=== PATIENT | male | born 1940 | race Caucasian/White ===

== ENCOUNTER 2017-06-13 09:00 | Emergency (ER) | payer OTHER, MEDICARE ==
[~2017-06-13] VITALS: Ht 188 cm; Wt 113.4 kg
[2017-06-13 09:04] VITALS: BP_SYST 113
--- NOTE | 2017-06-13 09:13 | NUR ---
Patient to ER bed 8 to gown for evaluation. Side rails up. Report given to Enrico QUIÑONES.
--- NOTE | 2017-06-13 09:20 | NUR ---
Dr. Mack at bedside for evaluation
--- NOTE | 2017-06-13 09:22 | NUR ---
Left knee pain +swelling noticed friday morning. Denies injury. States that he went to the gym on friday and it was fine. Tender to touch on kneecap. No deformity.
--- NOTE | 2017-06-13 09:23 | NUR ---
Pt refused ice pack at this time.
[2017-06-13] MEDS ORDERED: HYDROcodone/ACETAMIN 5-325 MG TAB (NORCO/ VICODIN) PO ONE (09:30)
--- NOTE | 2017-06-13 09:36 | NUR ---
Medicated per MD orders. Tolerated well. Awaiting xray
--- NOTE | 2017-06-13 09:59 | NUR ---
Xrays completed at bedside
--- NOTE | 2017-06-13 10:30 | NUR ---
No adverse reaction to medication given in ER
[2017-06-13 10:32] VITALS: BP_SYST 110
--- NOTE | 2017-06-13 10:32 | NUR ---
Patient given written and verbal discharge instructions and verbalizes understanding. ER MD discussed with patient the results and treatment provided. Patient in stable condition. ID arm band removed. Rx of colchicine, indomethacin, norco given. Patient educated on pain management and to follow up with PMD. Pain Scale 3/10. Opportunity for questions provided and answered.
== END 2017-06-13 10:32 | disposition home or self-care (01) ==
LOC: SED 09:00
DX: M10.062 Idiopathic gout, left knee (principal)
CPT/HCPCS: 73560-TC; 99284

== ENCOUNTER 2017-10-31 08:50 | Emergency (ER) | payer OTHER, MEDICARE ==
[~2017-10-31] VITALS: Ht 188 cm; Wt 108.9 kg
[2017-10-31 08:55] VITALS: BP_SYST 140
--- NOTE | 2017-10-31 09:00 | NUR ---
Ambulatory to bed 1
--- NOTE | 2017-10-31 09:18 | NUR ---
DR ROSE AT BEDSIDE FOR EVALUATION
--- NOTE | 2017-10-31 09:25 | NUR ---
XRAYS BEING DONE AT BEDSIDE.
[2017-10-31] MEDS ORDERED: ACETAMINOPHEN 500 MG TABLET PO ONE (09:30)
[2017-10-31 10:06] VITALS: BP_SYST 137
--- NOTE | 2017-10-31 10:06 | NUR ---
Patient given written and verbal discharge instructions and verbalizes understanding. ER MD discussed with patient the results and treatment provided. Patient in stable condition. ID arm band removed. Rx of MOTRIN given. Patient educated on pain management and to follow up with PMD. Pain Scale 0/10. Opportunity for questions provided and answered.
== END 2017-10-31 10:06 | disposition home or self-care (01) ==
LOC: SED 08:50
DX: S93.402A Sprain of unspecified ligament of left ankle, initial encounter (principal); M10.9 Gout, unspecified; W22.8XXA Striking against or struck by other objects, initial encounter; Y93.89 Activity, other specified; Y92.89 Other specified places as the place of occurrence of the external cause; Y99.8 Other external cause status
CPT/HCPCS: 99284

== ENCOUNTER 2017-12-11 08:27 | Outpatient (CLI) | payer OTHER, MEDICARE ==
[2017-12-11 09:16] LABS: BASOPHILS % (AUTO) 0.6 % (0.0-2.0); BILIRUBIN,URINE NEGATIVE (NEGATIVE); BLOOD, URINE NEGATIVE (NEGATIVE); CLARITY/URINE CLEAR (CLEAR); COLOR,URINE YELLOW (YELLOW); EOSINOPHILS # (AUTO) 0.1 K/uL (0.0-0.4); GLUCOSE,URINE NEGATIVE (NEGATIVE); HEMATOCRIT 42.4 % (36-54); KETONES,URINE NEGATIVE (NEGATIVE); LEUKOCYTE ESTERASE ,URINE NEGATIVE (NEGATIVE); LYMPHOCYTES # (AUTO) 1.8 K/uL (1.0-5.5); LYMPHOCYTES % (AUTO) 33.8 % (20.5-51.5); MEAN CORPUSCULAR HEMOGLOBIN 29 pg (27-31); MEAN CORPUSCULAR HGB CONC 33 % (32-36); MEAN CORPUSCULAR VOLUME 89 fL (79.0-98.0); MONOCYTES # (AUTO) 0.5 K/uL (0.0-1.0); MONOCYTES % (AUTO) 8.7 % (1.7-9.3); NEUTROPHILS % (AUTO) 55.9 % (40.0-70.0); NITRITE, URINE NEGATIVE (NEGATIVE); PH,URINE 5.5 (5.0-8.0); PLATELET COUNT (AUTO) 234 K/uL (130-430); PROTEIN URINE NEGATIVE (NEGATIVE); RED BLOOD CELL COUNT(AUTO) 4.76 MIL/uL (4.2-6.2); RED CELL DISTRIBUTION WIDTH 12.7 % (9.0-15.0); UROBILINOGEN,URINE 0.2 (0.2-1.0); WHITE BLOOD COUNT (AUTO) 5.4 K/uL (4.8-10.8)
[2017-12-11 09:45] LABS: ALANINE AMINOTRANSFERASE 25 U/L (12-78); ALBUMIN 3.8 g/dL (3.4-4.8); ANION GAP 7 (5-15); ASPARTATE AMINOTRANSFERASE 18 U/L (10-37); CALCIUM 9.6 mg/dL (8.4-11.0); CHLORIDE 106 mmol/L (98-107); CHOLESTEROL 146 mg/dL (<200); CREATININE 1.04 mg/dL (0.55-1.30); GLUCOSE 102 mg/dL (70-99); HDL CHOLESTEROL 35 mg/dL (>45); LDL CHOLESTEROL 94 mg/dL (<100); POTASSIUM 3.9 mmol/L (3.5-5.1); SODIUM SERUM 138 mmol/L (136-145); THYROID STIMULATING HORMONE 1.42 uIu/mL (0.34-4.82); TOTAL BILIRUBIN 0.8 mg/dL (0.0-1.0); TRIGLYCERIDES 149 mg/dL (30-150); UREA NITROGEN, BLOOD 14 mg/dL (8-21)
== END 2017-12-11 18:42 | disposition home or self-care (01) ==
LOC: SLB 08:27
DX: Z12.5 Encounter for screening for malignant neoplasm of prostate (principal); E78.00 Pure hypercholesterolemia, unspecified; E03.9 Hypothyroidism, unspecified; N39.0 Urinary tract infection, site not specified; R73.01 Impaired fasting glucose
CPT/HCPCS: 36415; 80053; 80061; 81003; 82272; 84153; 84443-TC; 85025

== ENCOUNTER 2018-12-29 09:30 | Outpatient (CLI) | payer OTHER, MEDICARE ==
[2018-12-29 10:20] LABS: BILIRUBIN,URINE NEGATIVE (NEGATIVE); BLOOD, URINE NEGATIVE (NEGATIVE); CLARITY/URINE SL HAZY (CLEAR); COLOR,URINE YELLOW (YELLOW); GLUCOSE,URINE NEGATIVE (NEGATIVE); KETONES,URINE NEGATIVE (NEGATIVE); LEUKOCYTE ESTERASE ,URINE NEGATIVE (NEGATIVE); NITRITE, URINE NEGATIVE (NEGATIVE); PH,URINE 5.5 (5.0-8.0); PROTEIN URINE NEGATIVE (NEGATIVE); UROBILINOGEN,URINE 0.2 (0.2-1.0)
[2018-12-29 10:34] LABS: BASOPHILS % (AUTO) 0.4 % (0.0-2.0); EOSINOPHILS # (AUTO) 0.1 K/uL (0.0-0.4); EOSINOPHILS % (AUTO) 1.6 % (0.0-4.0); HEMATOCRIT 43.8 % (36-54); HEMOGLOBIN 14.6 g/dL (14.0-18.0); LYMPHOCYTES # (AUTO) 1.9 K/uL (1.0-5.5); LYMPHOCYTES % (AUTO) 38.2 % (20.5-51.5); MEAN CORPUSCULAR HEMOGLOBIN 29 pg (27-31); MEAN CORPUSCULAR HGB CONC 33 % (32-36); MEAN CORPUSCULAR VOLUME 89 fL (79.0-98.0); MONOCYTES # (AUTO) 0.4 K/uL (0.0-1.0); MONOCYTES % (AUTO) 8.3 % (1.7-9.3); NEUTROPHILS # (AUTO) 2.6 K/uL (1.8-7.7); NEUTROPHILS % (AUTO) 51.5 % (40.0-70.0); PLATELET COUNT (AUTO) 190 K/uL (130-430); RED BLOOD CELL COUNT(AUTO) 4.95 MIL/uL (4.2-6.2); RED CELL DISTRIBUTION WIDTH 12.8 % (9.0-15.0)
[2018-12-29 11:00] LABS: ALANINE AMINOTRANSFERASE 26 U/L (12-78); ALBUMIN 3.6 g/dL (3.4-4.8); ANION GAP 3 (5-15); ASPARTATE AMINOTRANSFERASE 20 U/L (10-37); CHLORIDE 105 mmol/L (98-107); CHOLESTEROL 146 mg/dL (<200); CREATININE 1.11 mg/dL (0.55-1.30); GLUCOSE 93 mg/dL (70-99); HDL CHOLESTEROL 32 mg/dL (>45); LDL CHOLESTEROL 98 mg/dL (<100); POTASSIUM 4.1 mmol/L (3.5-5.1); SODIUM SERUM 137 mmol/L (136-145); THYROID STIMULATING HORMONE 1.29 uIu/mL (0.34-4.82); TOTAL BILIRUBIN 0.8 mg/dL (0.0-1.0); TRIGLYCERIDES 149 mg/dL (30-150); UREA NITROGEN, BLOOD 15 mg/dL (8-21)
[2018-12-30 08:06] LABS: PROSTATE SPECIFIC AG 3.4 ng/mL (0.0-4.0)
== END 2018-12-29 21:28 | disposition home or self-care (01) ==
LOC: SLB 09:30
DX: Z12.5 Encounter for screening for malignant neoplasm of prostate (principal); E78.00 Pure hypercholesterolemia, unspecified; E03.9 Hypothyroidism, unspecified; E55.9 Vitamin D deficiency, unspecified; R73.01 Impaired fasting glucose; N39.0 Urinary tract infection, site not specified
CPT/HCPCS: 36415; 80053; 80061; 81003; 82306; 84443; 85025; G0103

== ENCOUNTER 2019-03-17 09:07 | Outpatient (CLI) | payer OTHER, MEDICARE ==
[2019-03-17 10:21] LABS: BASOPHILS % (AUTO) 0.6 % (0.0-2.0); EOSINOPHILS # (AUTO) 0.1 K/uL (0.0-0.4); EOSINOPHILS % (AUTO) 0.8 % (0.0-4.0); HEMATOCRIT 43.4 % (36-54); HEMOGLOBIN 14.7 g/dL (14.0-18.0); LYMPHOCYTES # (AUTO) 1.9 K/uL (1.0-5.5); LYMPHOCYTES % (AUTO) 27.3 % (20.5-51.5); MEAN CORPUSCULAR HEMOGLOBIN 30 pg (27-31); MEAN CORPUSCULAR HGB CONC 34 % (32-36); MEAN CORPUSCULAR VOLUME 87 fL (79.0-98.0); MONOCYTES # (AUTO) 0.4 K/uL (0.0-1.0); MONOCYTES % (AUTO) 6.1 % (1.7-9.3); NEUTROPHILS # (AUTO) 4.4 K/uL (1.8-7.7); NEUTROPHILS % (AUTO) 65.2 % (40.0-70.0); PLATELET COUNT (AUTO) 224 K/uL (130-430); RED BLOOD CELL COUNT(AUTO) 4.97 MIL/uL (4.2-6.2); WHITE BLOOD COUNT (AUTO) 6.8 K/uL (4.8-10.8)
[2019-03-17 10:34] LABS: ANION GAP 8 (5-15); CALCIUM 9.6 mg/dL (8.4-11.0); CHLORIDE 104 mmol/L (98-107); CREATININE 1.21 mg/dL (0.55-1.30); GLUCOSE 129 mg/dL (70-99); POTASSIUM 3.9 mmol/L (3.5-5.1); SODIUM SERUM 139 mmol/L (136-145); UREA NITROGEN, BLOOD 18 mg/dL (8-21)
== END 2019-03-17 21:13 | disposition home or self-care (01) ==
LOC: SCT 09:07
PROVIDERS: ATTEND Otolaryngology
DX: Z01.818 Encounter for other preprocedural examination (principal); J33.9 Nasal polyp, unspecified; J34.2 Deviated nasal septum; M89.8X9 Other specified disorders of bone, unspecified site; M95.2 Other acquired deformity of head
CPT/HCPCS: 36415; 70486-TC; 71046-TC; 80048; 85025; 93005

== ENCOUNTER 2019-03-19 08:52 | Emergency (ER) | payer OTHER, MEDICARE ==
[~2019-03-19] VITALS: Ht 188 cm; Wt 106.1 kg
[2019-03-19 08:55] VITALS: BP_SYST 115
--- NOTE | 2019-03-19 09:06 | NUR ---
Patient to ER bed 1 to gown for evaluation. Side rails up. Report given to Ryan QUIÑONES.
--- NOTE | 2019-03-19 09:18 | NUR ---
Patient comes from home in personal vehicle accompanied by , patient is AOx4, verbal and ambulatory. Patient has complaint of pain to RT heel area. States that he fell about a "month ago and it still has not gone away" states that "by the end of the day foot is swollen and painful" Swelling to back of heel area noted, some redness noted, no heat to touch, ambulatory with pain. No other complaint or injury at this time.
--- NOTE | 2019-03-19 09:30 | NUR ---
DR SOLIZ at bedside for ER evaluation
[2019-03-19 11:33] LABS: BASOPHILS % (AUTO) 0.4 % (0.0-2.0); EOSINOPHILS # (AUTO) 0.1 K/uL (0.0-0.4); EOSINOPHILS % (AUTO) 0.9 % (0.0-4.0); HEMATOCRIT 41.4 % (36-54); HEMOGLOBIN 14.2 g/dL (14.0-18.0); LYMPHOCYTES # (AUTO) 2.2 K/uL (1.0-5.5); MEAN CORPUSCULAR HEMOGLOBIN 30 pg (27-31); MEAN CORPUSCULAR HGB CONC 34 % (32-36); MEAN CORPUSCULAR VOLUME 87 fL (79.0-98.0); MONOCYTES # (AUTO) 0.6 K/uL (0.0-1.0); MONOCYTES % (AUTO) 8.3 % (1.7-9.3); NEUTROPHILS % (AUTO) 58.4 % (40.0-70.0); PLATELET COUNT (AUTO) 212 K/uL (130-430); RED BLOOD CELL COUNT(AUTO) 4.78 MIL/uL (4.2-6.2); RED CELL DISTRIBUTION WIDTH 13.8 % (9.0-15.0); WHITE BLOOD COUNT (AUTO) 6.8 K/uL (4.8-10.8)
--- NOTE | 2019-03-19 11:40 | NUR ---
Pt resting at this time, no s/s of distress.
[2019-03-19 11:48] LABS: ANION GAP 4 (5-15); CALCIUM 9.5 mg/dL (8.4-11.0); CHLORIDE 104 mmol/L (98-107); CREATININE 1.19 mg/dL (0.55-1.30); GLUCOSE 91 mg/dL (70-99); POTASSIUM 4.7 mmol/L (3.5-5.1); SODIUM SERUM 138 mmol/L (136-145); UREA NITROGEN, BLOOD 18 mg/dL (8-21)
[2019-03-19 11:55] LABS: ALANINE AMINOTRANSFERASE 25 U/L (12-78); ALBUMIN 3.3 g/dL (3.4-4.8); ASPARTATE AMINOTRANSFERASE 18 U/L (10-37); TOTAL BILIRUBIN 0.8 mg/dL (0.0-1.0); URIC ACID 8.8 mg/dL (2.4-7.0)
--- NOTE | 2019-03-19 14:45 | NUR ---
Pt awaiting for results on stable condition.
--- NOTE | 2019-03-19 15:14 | NUR ---
Patient given written and verbal discharge instructions and verbalizes understanding. ER MD discussed with patient the results and treatment provided. Patient in stable condition. ID arm band removed. Rx of Ibuprofen, [place] given. Patient educated on pain management and to follow up with PMD. Pain Scale 3/10. Opportunity for questions provided and answered. Medication side effect fact sheet provided.
[2019-03-19 15:15] VITALS: BP_SYST 103
== END 2019-03-19 15:15 | disposition home or self-care (01) ==
LOC: SED 08:52
DX: S86.011A Strain of right Achilles tendon, initial encounter (principal); W14.XXXA Fall from tree, initial encounter; Y93.89 Activity, other specified; Y92.89 Other specified places as the place of occurrence of the external cause; Y99.8 Other external cause status
CPT/HCPCS: 36415; 73700-TC; 73721; 80053; 84550-TC; 85025; 93971; 99284

== ENCOUNTER 2019-04-07 11:41 | Outpatient (CLI) | payer OTHER, MEDICARE | END 2019-04-07 20:18 | disposition home or self-care (01) | LOC: SRD 11:41 | PROVIDERS: ATTEND Orthopaedic Surgery | DX: M79.661 Pain in right lower leg (principal); R60.0 Localized edema | CPT/HCPCS: 93971 ==

== ENCOUNTER 2019-04-09 05:50 | Day surgery (SDC) | payer OTHER, MEDICARE ==
[~2019-04-09] VITALS: Ht 188 cm; Wt 106.6 kg
[2019-04-09] MEDS ORDERED: FAMOTIDINE PF 20 MG/2 ML VIAL ONE ×2 (08:37→10:28)
[2019-04-09] MEDS ORDERED: SEVOFLURANE 15 MIN GAS INH ONE (10:28)
[2019-04-09] MEDS ORDERED: LIDOCAINE/EPI 1% 1:100000 20 ML VIAL INJ ONE (10:28)
[2019-04-09] MEDS ORDERED: EPINEPHrine 1 MG/ML AMP ONE (10:28)
[2019-04-09] MEDS ORDERED: WATER FOR IRRIGATION,STERILE 1,000 ML IRRIG.SOLN IR ONE (10:28)
[2019-04-09] MEDS ORDERED: METOCLOPRAMIDE HCL 10 MG/2 ML VIAL ONE (10:28)
[2019-04-09] MEDS ORDERED: DEXAMETHASONE SOD PHOSPHATE 4 MG/ML VIAL ONE (10:28)
[2019-04-09] MEDS ORDERED: PROPOFOL 200MG/ 20ML VIAL (DIPRIVAN) IV ONE (10:28)
[2019-04-09] MEDS ORDERED: ROCURONIUM BROMIDE 10 MG/ML (ZEMURON) ONE (10:28)
[2019-04-09] MEDS ORDERED: fentaNYL CITRATE 250 MCG/5 ML AMP ONE (10:28)
[2019-04-09] MEDS ORDERED: fentaNYL CITRATE/PF 100 MCG/2 ML AMP ONE (10:28)
[2019-04-09] MEDS ORDERED: KETOROLAC TROMETHAMINE 30 MG VIAL ONE (10:28)
[2019-04-09] MEDS ORDERED: MUPIROCIN 2% TOPICAL OINTMENT 22 GM ONE (10:28)
[2019-04-09] MEDS ORDERED: LR 1,000 ML IV.SOLN IV ONE (10:28)
[2019-04-09] MEDS ORDERED: ONDANSETRON HCL 4 MG/2 ML VIAL ONE (10:28)
[2019-04-09] MEDS ORDERED: MIDAZOLAM HCL 5 MG/ML VIAL (VERSED) IV ONE (10:28)
[2019-04-09] MEDS ORDERED: OXYMETAZOLINE HCL 0.05% NASAL SPRAY NS ONE (10:28)
[2019-04-09] MEDS ORDERED: LR 1,000 ML IV SCH (10:31)
[2019-04-09] MEDS ORDERED: HYDROmorphone 2 MG/ML VIAL IVP PRN ×2 (10:45)
[2019-04-09] MEDS ORDERED: MEPERIDINE HCL/PF 25 MG/ML DISP.SYRIN IVP PRN (10:45)
[2019-04-09] MEDS ORDERED: HYDROmorphone 1 MG INJ. 1 MG/ML AMPUL IVP PRN (10:45)
[2019-04-09] MEDS ORDERED: HYDROmorphone 1 MG INJ. 1 MG/ML AMPUL ONE (11:23)
[2019-04-09 15:12] VITALS: BP_SYST 142
[2019-04-10] MEDS ORDERED: TAMS0.4C96 PO (02:08)
[2019-04-10] MEDS ORDERED: HYT1 PO ×2 (02:13→02:14)
== END 2019-04-09 14:45 | disposition home or self-care (01) ==
LOC: SMU 05:50 → SDS 05:50
PROVIDERS: ATTEND Otolaryngology
DX: J34.2 Deviated nasal septum (principal); J34.89 Other specified disorders of nose and nasal sinuses; I10 Essential (primary) hypertension; N40.0 Benign prostatic hyperplasia without lower urinary tract symptoms; E66.01 Morbid (severe) obesity due to excess calories
CPT/HCPCS: 30140; 30520; 31267; 31298; 87070 ×2; 87075; 87101; 88305; 88311; C1726; J0171; J1100; J1170; J1885; J2250; J2405; J2704; J2765; J3010 ×2; J3490; J7120

== ENCOUNTER 2019-04-10 00:33 | Inpatient (IN) | payer OTHER, MEDICARE ==
[~2019-04-10] VITALS: Ht 188 cm; Wt 106.1 kg
[2019-04-10 00:33] VITALS: BP_SYST 155
--- NOTE | 2019-04-10 00:33 | NUR ---
Patient to ER bed 2 to gown for evaluation. Side rails up.
--- NOTE | 2019-04-10 00:40 | NUR ---
ER at bedside examining patient.
--- NOTE | 2019-04-10 00:45 | NUR ---
Pt came to the ED post 12 hour status post nasal polyp removal performed by Dr. Shine for acute lower extremity weakness which started a few hours prior to arrival. Reports procedure went well. Reports he had a mild discomfort in his ABD after taking 1/2 dose of Cipro. He sat down and watched TV for a few hours while sitting up for hours. Around around 2300 he reported feeling bilateral leg weakness. states, "He said it felt like rubber." Currently, pt is complaining of AMR 8/10 when he stays still but when he turns his head it is 10/10. No other complaints/injuries noted. Will cont. to monitor.
--- NOTE | 2019-04-10 00:45 | NUR ---
Note undone in EDM - 04/10/19 at 0250 by [email or web address] Pt came to the ED post 12 hour status post nasal polyp removal performed by Dr. Shine for acute lower extremity weaknbess which started a few hours prior to arrival. Reports procedure went well. Reports he had a mild discomfort in his ABD after taking 1/2 dose of Cipro. He sat down and watched TV for a few hours while sitting up for hours. Around around 2300 he reported feeling bilateral leg weakness. states, "He said it felt like rubber." Currently, pt is complaining of MAR 8/10 when he stays still but when he turns his head it is 10/10. No other complaints/injuries noted. Will cont. to monitor.
[2019-04-10] MEDS ORDERED: NS 500 ML IV ONE (01:00)
[2019-04-10] MEDS ORDERED: MORPHINE 4 MG/ML INJ. SYRINGE IVP ONE (01:00)
[2019-04-10 01:32] LABS: BASOPHILS % (AUTO) 0.1 % (0.0-2.0); HEMATOCRIT 35.6 % (36-54); HEMOGLOBIN 12.2 g/dL (14.0-18.0); LYMPHOCYTES # (AUTO) 0.5 K/uL (1.0-5.5); LYMPHOCYTES % (AUTO) 4.3 % (20.5-51.5); MEAN CORPUSCULAR HEMOGLOBIN 30 pg (27-31); MEAN CORPUSCULAR HGB CONC 34 % (32-36); MEAN CORPUSCULAR VOLUME 87 fL (79.0-98.0); MONOCYTES # (AUTO) 0.3 K/uL (0.0-1.0); MONOCYTES % (AUTO) 3.2 % (1.7-9.3); NEUTROPHILS # (AUTO) 10.2 K/uL (1.8-7.7); NEUTROPHILS % (AUTO) 92.4 % (40.0-70.0); PLATELET COUNT (AUTO) 203 K/uL (130-430)
[2019-04-10 01:41] LABS: ANION GAP 11 (5-15); CALCIUM 9.1 mg/dL (8.4-11.0); CHLORIDE 102 mmol/L (98-107); CREATININE 1.39 mg/dL (0.55-1.30); GLUCOSE 212 mg/dL (70-99); POTASSIUM 4.1 mmol/L (3.5-5.1); SODIUM SERUM 139 mmol/L (136-145); UREA NITROGEN, BLOOD 26 mg/dL (8-21)
[2019-04-10 01:45] LABS: INR 1.1 (0.80-1.20); PROTHROMBIN TIME 10.8 SECS (9.5-12.5)
[2019-04-10] MEDS ORDERED: fentaNYL CITRATE/PF 100 MCG/2 ML AMP IVP ONE ×2 (01:45→05:30)
--- NOTE | 2019-04-10 01:45 | NUR ---
Reports pt cannot lie down for CAT scan. ER MD Dr. Mason will order more pain medication.
[2019-04-10 01:47] LABS: ALANINE AMINOTRANSFERASE 24 U/L (12-78); ALBUMIN 3.3 g/dL (3.4-4.8); ASPARTATE AMINOTRANSFERASE 16 U/L (10-37); TOTAL BILIRUBIN 0.6 mg/dL (0.0-1.0)
--- NOTE | 2019-04-10 01:55 | NUR ---
Administered Fentanyl IVP per MD order in CAT scan room. Pt on cardiac/O2 monitor. RN at bedside monitoring pt/.
[2019-04-10] MEDS ORDERED: ONDANSETRON HCL 4 MG/2 ML VIAL IVP ONE ×2 (02:00→05:30)
--- NOTE | 2019-04-10 02:00 | NUR ---
Pt had one episode of projectile emesis. ER MD at bedside. WIll cont. to monitor.
[2019-04-10] MEDS ORDERED: TAMS0.4C96 PO (02:08)
[2019-04-10] MEDS ORDERED: HYT1 PO ×2 (02:13→02:14)
[2019-04-10] MEDS ORDERED: NACL 0.9% IV ONE (02:15)
[2019-04-10] MEDS ORDERED: MORPHINE 2 MG/ML INJ. SYRINGE IVP PRN ×3 (02:15→06:30)
[2019-04-10] MEDS ORDERED: NACL 0.9% 1,000 ML IV SCH (02:15)
[2019-04-10] MEDS ORDERED: PIPERACILLIN/TAZO 3.375/DEX-IS 50 ML IV ONE (02:30)
[2019-04-10] MEDS ORDERED: LEVOFLOXACIN 500 MG/D5W 100 ML IV SCH (02:30)
[2019-04-10] MEDS ORDERED: PIPERACILLIN/TAZOBACTAM 3.375 GM/VIAL (ZOSYN) IV ONE (02:44)
--- NOTE | 2019-04-10 02:47 | NUR ---
Unable to do MRSA screen due to nasal polyp sx. ER made aware.
--- NOTE | 2019-04-10 03:00 | NUR ---
ER MD Dr. Mason on the phone with [facility] for possible transfer.
--- NOTE | 2019-04-10 04:30 | NUR ---
recieved call from [facility] Ana Delcid. Pt has been assigned room 262-B. Requested report to be called to phone # [phone].
--- NOTE | 2019-04-10 05:00 | NUR ---
Patient to be transferred to [facility]. Is being transferred due to higher level of care. Receiving facility has accepting physician and available space. ER physician has signed transfer form. Patient or responsible constitution party has agreed to transfer and signed form. Patient belongings inventoried and will be sent with patient. Copy of nursing notes, lab reports, EKG, Physicians Orders and X-rays to be sent with patient. Report called to ISHMAEL Henry at receiving facility. Receiving physician is Dr. Kilgore[facility] been [facility] for transfer. ETA is now.
[2019-04-10] MEDS ORDERED: KETOROLAC TROMETHAMINE 30 MG VIAL IVP ONE (05:15)
[2019-04-10] MEDS ORDERED: KETOROLAC TROMETHAMINE 30 MG VIAL ONE (05:25)
--- NOTE | 2019-04-10 05:27 | NUR ---
Note remigioone in EDM - 04/10/19 at 0543 by MITCHELLEDCA PT reports Toradol IVP was not effective. PONCHO Mason at bedside. WIll order another medication.
--- NOTE | 2019-04-10 05:27 | NUR ---
PT reports Toradol IVP was not effective. ER MD Dr. Mason at bedside. WIll order another medication
--- NOTE | 2019-04-10 05:35 | NUR ---
PT medicated with zofran and fentanyl per md order. Monitoring on cardiac and O2 monitor. VSS.
--- NOTE | 2019-04-10 05:46 | NUR ---
Monitored pt after administering fentanyl. ER MD gave okay for pt to be transferred.
[2019-04-10 06:00] VITALS: BP_SYST 153
--- NOTE | 2019-04-10 06:00 | NUR ---
Pt transferred via gurney. IV patent and saline locked. No signs of acute distress.
[2019-04-10] MEDS ORDERED: DOCUSATE SODIUM 100 MG CAPSULE PO PRN (06:30)
[2019-04-10] MEDS ORDERED: ZOLPIDEM TARTRATE 5 MG TABLET PO PRN (06:30)
[2019-04-10] MEDS ORDERED: LORazepam 2 MG/ML VIAL IVP PRN (06:30)
[2019-04-10] MEDS ORDERED: MUPIROCIN 2% TOPICAL OINTMENT 22 GM NS PRN (06:30)
[2019-04-10] MEDS ORDERED: POTASSIUM CHLORIDE 20 MEQ TAB.PRT.SR PO PRN (06:30)
[2019-04-10] MEDS ORDERED: ONDANSETRON HCL 4 MG/2 ML VIAL IVP PRN (06:30)
[2019-04-10] MEDS ORDERED: MAGNESIUM SULFATE 50 ML IV PRN (06:30)
[2019-04-10] MEDS ORDERED: ACETAMINOPHEN 325 MG TABLET PO PRN (06:30)
--- NOTE | 2019-04-10 07:20 | NUR ---
CONSULTATION PAGED/CALLED Reason for Consultation: [] NEUROPATHY Person Who was Notified: [] CITLALI Consulting Physician: [] Nayeli Schuler [employer] Bolter Specialty: [] NEUROLOGY Ordering Physician: [] DR Susannah DOMINGUEZ
[2019-04-10] MEDS ORDERED: TAMSULOSIN HCL 0.4 MG CAP PO SCH (09:00)
[2019-04-10] MEDS ORDERED: TERAZOSIN HCL 1 MG CAPSULE (HYTRIN) PO SCH (09:00)
== END 2019-04-10 06:00 | disposition short-term general hospital (02) | DRG 74 ==
LOC: SED 00:33 → STU 02:15
PROVIDERS: ADMIT General Practice; ATTEND General Practice
DX: G62.9 Polyneuropathy, unspecified (principal); N40.0 Benign prostatic hyperplasia without lower urinary tract symptoms; M10.9 Gout, unspecified; G93.89 Other specified disorders of brain; R51 Headache; Z79.899 Other long term (current) drug therapy
CPT/HCPCS: 36415; 70450-TC; 71045; 80053; 83036; 83605; 83880; 84484; 85025; 85610-TC; 85730-TC; 87040-TC; 93005; 96365; 96367; 96375; 96376; 99285; G0378; J1885; J1956; J2270; J2405; J2543; J3010

== ENCOUNTER 2019-05-31 12:41 | Emergency (ER) | payer OTHER, MEDICARE ==
[~2019-05-31] VITALS: Ht 188 cm; Wt 98.4 kg
[~2019-05-31 12:41] MED LIST: HYT1 PO; TAMS0.4C96 PO
--- NOTE | 2019-05-31 12:46 | NUR ---
Placed in room 04 . Placed on senior office support assistant sosa, blood pressure machine and pulse oximeter. To gown for exam. Side rails up.
[2019-05-31 12:47] VITALS: BP_SYST 116
--- NOTE | 2019-05-31 12:50 | NUR ---
Pt brought by family member , A&Ox4, pt presents to ER with one episode of R side weakness this morning at 1000 am , pt states he had a sinus surgery in the last month and he was admitted to hospital for air in the brain, pt is afebrile, skin pink and warm, cap refill <3 , pt is ambulatory, pt denies weakness at this time, no facial drop, intact ROM, intact speech, denies blurred vision, will cont to monitor.
--- NOTE | 2019-05-31 12:54 | NUR ---
Dr Mack at bedside examining patient
--- NOTE | 2019-05-31 13:15 | NUR ---
Pt off the unit for CT
--- NOTE | 2019-05-31 13:35 | NUR ---
Pt returned from CT on stable condition.
[2019-05-31 13:58] LABS: BASOPHILS % (AUTO) 0.2 % (0.0-2.0); EOSINOPHILS % (AUTO) 0.1 % (0.0-4.0); HEMATOCRIT 33.9 % (36-54); HEMOGLOBIN 11.4 g/dL (14.0-18.0); LYMPHOCYTES # (AUTO) 1.6 K/uL (1.0-5.5); LYMPHOCYTES % (AUTO) 15.5 % (20.5-51.5); MEAN CORPUSCULAR HEMOGLOBIN 29 pg (27-31); MEAN CORPUSCULAR HGB CONC 34 % (32-36); MEAN CORPUSCULAR VOLUME 88 fL (79.0-98.0); MONOCYTES # (AUTO) 0.8 K/uL (0.0-1.0); MONOCYTES % (AUTO) 7.7 % (1.7-9.3); NEUTROPHILS # (AUTO) 8.1 K/uL (1.8-7.7); NEUTROPHILS % (AUTO) 76.5 % (40.0-70.0); PLATELET COUNT (AUTO) 178 K/uL (130-430); RED BLOOD CELL COUNT(AUTO) 3.87 MIL/uL (4.2-6.2); RED CELL DISTRIBUTION WIDTH 15.2 % (9.0-15.0); WHITE BLOOD COUNT (AUTO) 10.5 K/uL (4.8-10.8)
--- NOTE | 2019-05-31 14:10 | NUR ---
Dr Mack at bedside explaining results to patient
--- NOTE | 2019-05-31 14:10 | NUR ---
Pt A&Ox4, intact ROM , no N./V, no blurred vision noted, PERRLA.
[2019-05-31 14:13] LABS: ANION GAP 9 (5-15); CHLORIDE 105 mmol/L (98-107); CREATININE 1.35 mg/dL (0.55-1.30); GLUCOSE 187 mg/dL (70-99); POTASSIUM 3.5 mmol/L (3.5-5.1); SODIUM SERUM 138 mmol/L (136-145); UREA NITROGEN, BLOOD 20 mg/dL (8-21)
[2019-05-31 14:17] LABS: BILIRUBIN,URINE NEGATIVE (NEGATIVE); BLOOD, URINE 1+ (NEGATIVE); CLARITY/URINE CLEAR (CLEAR); COLOR,URINE YELLOW (YELLOW); GLUCOSE,URINE NEGATIVE (NEGATIVE); KETONES,URINE NEGATIVE (NEGATIVE); LEUKOCYTE ESTERASE ,URINE 2+ (NEGATIVE); NITRITE, URINE POSITIVE (NEGATIVE); PH,URINE 5.5 (5.0-8.0); PROTEIN URINE NEGATIVE (NEGATIVE); UROBILINOGEN,URINE 0.2 (0.2-1.0)
[2019-05-31 14:17] LABS: ALANINE AMINOTRANSFERASE 19 U/L (12-78); ALBUMIN 3.1 g/dL (3.4-4.8); ASPARTATE AMINOTRANSFERASE 10 U/L (10-37)
[2019-05-31 14:20] LABS: INR 1.1 (0.80-1.20); PROTHROMBIN TIME 11.3 SECS (9.5-12.5)
[2019-05-31] MEDS ORDERED: cefTRIAXone 1 GM IVPB PREMIX 50 ML IV ONE (14:30)
[2019-05-31 14:39] LABS: BACTERIA,URINE MODERATE /HPF (None Seen); WBC,URINE >100 /HPF (0-3)
--- NOTE | 2019-05-31 15:30 | NUR ---
Pt resting no c/o pain, dizziness,nausea or vomiting.
--- NOTE | 2019-05-31 16:50 | NUR ---
Patient to be transferred to [place]. Is being transferred due to higher level of care. Receiving facility has accepting physician and available space. ER physician has signed transfer form. Patient or responsible republican has agreed to transfer and signed form. Patient belongings inventoried and will be sent with patient. Copy of nursing notes, lab reports, EKG, Physicians Orders and X-rays to be sent with patient. Report called to Lorenza QUIÑONES at receiving facility. Receiving physician is . [facility] ambulance service has been called for transfer. ETA is 1700.
[2019-05-31 17:20] VITALS: BP_SYST 117
--- NOTE | 2019-05-31 17:20 | NUR ---
pt transported to [facility] via gurney escorted by [facility] transport.
== END 2019-05-31 17:20 | disposition short-term general hospital (02) ==
LOC: SED 12:41
DX: I62.00 Nontraumatic subdural hemorrhage, unspecified (principal); Z79.899 Other long term (current) drug therapy
CPT/HCPCS: 36415; 70450; 71045; 80053; 81000; 83605; 84484; 85025; 85610; 85730; 87040; 87086; 87186; 93005; 96365; 99291; J0696

== ENCOUNTER 2019-06-17 07:52 | Inpatient (IN) | payer OTHER, MEDICARE ==
[~2019-06-17] VITALS: Ht 188 cm; Wt 98.0 kg
--- NOTE | 2019-06-17 08:03 | NUR ---
Patient to ER bed 2 to gown for evaluation. Side rails up. Report given to Irina QUIÑONES.
[2019-06-17 08:04] VITALS: BP_SYST 119
--- NOTE | 2019-06-17 08:04 | NUR ---
Patient presented to ER with c/o being Altered, confused. Patient arrived to ER with in wheelchair. Patient A&Ox4, skin pink, appropriate, respirations equal. Patient reports "not feeling like himself". states at 0700 pt stated he "doesnt know what happened" report pt was diaphoretic, walking with a shuffling gaite, and patient seemed confudes. states patient had nasal surgery 04/17/19, then was seen in ER 05/31/19 with subdural bleed.
--- NOTE | 2019-06-17 08:05 | NUR ---
ER Dr. Suarez at bedside examining patient.
--- NOTE | 2019-06-17 08:40 | NUR ---
Pt to ER bed [address] via wheelchair with radiology staff
[2019-06-17] MEDS ORDERED: DEXAMETHASONE SOD PHOSPHATE 4 MG/ML VIAL IVP ONE (09:15)
--- NOTE | 2019-06-17 09:30 | NUR ---
PATIENT PROVIDED SMALL URINE SPECIMEN IN URINAL, PATIENT STATES HE IS UNABLE TO EMPTY BLADDER.
[2019-06-17 09:37] LABS: BILIRUBIN,URINE NEGATIVE (NEGATIVE); CLARITY/URINE SL HAZY (CLEAR); COLOR,URINE YELLOW (YELLOW); GLUCOSE,URINE NEGATIVE (NEGATIVE); KETONES,URINE NEGATIVE (NEGATIVE); LEUKOCYTE ESTERASE ,URINE 2+ (NEGATIVE); NITRITE, URINE POSITIVE (NEGATIVE); PH,URINE 5.5 (5.0-8.0); PROTEIN URINE NEGATIVE (NEGATIVE); UROBILINOGEN,URINE 0.2 (0.2-1.0)
[2019-06-17 09:38] LABS: BLOOD, URINE TRACE (NEGATIVE)
[2019-06-17 09:49] LABS: BACTERIA,URINE MODERATE /HPF (None Seen); MUCUS,URINE 1+ /LPF (None Seen)
[2019-06-17] MEDS ORDERED: levETIRAcetam 500 MG IV PREMIX 100 ML IV ONE (10:00)
--- NOTE | 2019-06-17 10:00 | NUR ---
# 14 FR In and Out catheter with use of sterile technique. Immediate return of 800ml urine noted. Pt tolerated procedure WELL. Patient unable to toilet self.
[2019-06-17 10:06] LABS: HEMATOCRIT 40.7 % (36-54); HEMOGLOBIN 13.8 g/dL (14.0-18.0); MEAN CORPUSCULAR HEMOGLOBIN 29 pg (27-31); MEAN CORPUSCULAR HGB CONC 34 % (32-36); MEAN CORPUSCULAR VOLUME 86 fL (79.0-98.0); PLATELET COUNT (AUTO) 237 K/uL (130-430); RED BLOOD CELL COUNT(AUTO) 4.72 MIL/uL (4.2-6.2); RED CELL DISTRIBUTION WIDTH 15.3 % (9.0-15.0); WHITE BLOOD COUNT (AUTO) 20.9 K/uL (4.8-10.8)
[2019-06-17 10:08] LABS: ANION GAP 7 (5-15); CALCIUM 9.3 mg/dL (8.4-11.0); CHLORIDE 101 mmol/L (98-107); CREATININE 1.25 mg/dL (0.55-1.30); GLUCOSE 103 mg/dL (70-99); POTASSIUM 3.5 mmol/L (3.5-5.1); SODIUM SERUM 134 mmol/L (136-145); UREA NITROGEN, BLOOD 24 mg/dL (8-21)
[2019-06-17 10:13] LABS: ALANINE AMINOTRANSFERASE 19 U/L (12-78); ALBUMIN 3.4 g/dL (3.4-4.8); ASPARTATE AMINOTRANSFERASE 11 U/L (10-37)
[2019-06-17] MEDS ORDERED: FINA5TAB3 PO (10:44)
[2019-06-17] MEDS ORDERED: DEC1 PO (10:44)
[2019-06-17] MEDS ORDERED: TAMS-11 PO (10:45)
[2019-06-17] MEDS ORDERED: FAMO20TA8 PO (10:45)
[2019-06-17] MEDS ORDERED: HYT1 GT (10:45)
--- NOTE | 2019-06-17 10:47 | NUR ---
Medication reconciliation completed with information provided by Liz hirsch. Any prior medication reconciliation on file was reviewed and corrected.
--- NOTE | 2019-06-17 10:55 | NUR ---
Patient will be admitted to care of Dr. Murillo. Admitted to Tele unit. Will go to room 124A . Belongings list completed. Summary report printed. Report given at bedside Shannan QUIÑONES. Transfer to TELE 124a via ACLS protocol. Irina QUIÑONES & Lauri QUIÑONES. IV present no signs or symptoms of infiltration.
--- NOTE | 2019-06-17 10:56 | NUR ---
Admission Note Received patient from ER with diagnosis of autonomic dysfuncton. Initial Plan of Care discussed. Oriented to room, call light, pain management and safety.
[2019-06-17 11:06] VITALS: BP_SYST 127
[2019-06-17 11:10] VITALS: BP_SYST 127
[2019-06-17 11:14] LABS: BAND % (MANUAL) 5 % (0-6); BASOPHILS % (MANUAL) 0 % (0-2); EOSINOPHILS % (MANUAL) 0 % (0-7); LYMPHOCYTES % (MANUAL) 4 % (20-46); MONOCYTES % (MANUAL) 12 % (0-11)
--- NOTE | 2019-06-17 11:20 | NUR ---
RN INITIAL ROUNDS: PATIENT JUST CAME FROM ER . VITAL SIGNS ALREADY TAKEN BY ADMIT NURSE. AFEBRILE AND STABLE. BED LOCKED AT LOWEST POSITION. CALL LIGHT WITH IN REACH. CONTINUE TO MONITOR.
[2019-06-17] MEDS: NACL 0.9% 1,000 ML IV SCH ×2 (11:44→23:46)
[2019-06-17] MEDS: cefTRIAXone 1 GM in D5W 50 ML IV SCH (11:45)
--- NOTE | 2019-06-17 12:56 | NUR ---
RN ROUNDS: PATIENT FILLING UP MRI CHECK LIST. NOT IN ANY DISTRESS. CALL LIGHT WITH IN REACH. BED LOCKED AT LOWEST POSITION.
--- NOTE | 2019-06-17 14:25 | NUR ---
rn rounds: resting. no distress.
[2019-06-17] MEDS ORDERED: GADOPENTETATE DIMEGLUMINE 15 ML VIAL IV ONE (14:54)
--- NOTE | 2019-06-17 16:30 | NUR ---
mri: to mri per wheelchair. stable. Addendum: 06/17/19 at 1814 by Marcela Romero RN corrected above time: correct time at 1500.
[2019-06-17 17:00] VITALS: BP_SYST 108
--- NOTE | 2019-06-17 18:14 | NUR ---
End of Shift: Patient refused his dinner tray due to will bring his dinner food . bought food and served it to her .No acute distress. Condition guarded.
--- NOTE | 2019-06-17 18:57 | NUR ---
Bladder Scan: Bladder scan ,obtained 103ml urine.
[2019-06-17] MEDS ORDERED: BISACODYL 5 MG TABLET.DR (DULCOLAX) PO PRN (19:00)
--- NOTE | 2019-06-17 19:28 | NUR ---
Closing Notes: Endorsed to night nurse Lucy,patient in stable condition. Call light with in reach. Bed locked at lowest position.
--- NOTE | 2019-06-17 19:30 | NUR ---
OPENING NOTE Late entry d/t patient care. Received patient awake, AOx4 resting in bed, no sign of distress noted. Non-labored breathing on room air. IVF infusing via IV on RAC. Bed is locked to lowest position, side rails up 2x and instructed on use of call light.
[2019-06-17 20:00] VITALS: BP_SYST 116
[2019-06-17] MEDS ORDERED: DECADRON 4 MG TABLET PO SCH (21:00)
[2019-06-17] MEDS: DOCUSATE SODIUM 100 MG CAPSULE PO SCH (21:28)
[2019-06-17] MEDS: levETIRAcetam 500 MG TABLET PO SCH (21:28)
[2019-06-17] MEDS: DEXAMETHASONE 1 MG TABLET (DECADRON) PO SCH (21:28)
[2019-06-17] MEDS: FAMOTIDINE 20 MG TABLET PO SCH (21:28)
--- NOTE | 2019-06-17 21:45 | NUR ---
Medications Due medications given. Patient educated on side effects and he verbalized understanding. Presently wants to rest and requesting lights off. Bed alarm on and call light w/in reach.
--- NOTE | 2019-06-17 23:30 | NUR ---
Bladder Scan / Straight Cath Bladder scan performed and obtained reading of 260ml. Straight catheterization done with use of sterile technique and obtained 200 ml of clear yellow urine.
--- NOTE | 2019-06-17 23:51 | NUR ---
IVF Replaced empty IV fluid bag with new IV bag of NS. Infusing at 80 ml/hr as ordered. Patient is resting in side posture and lights are off. Safety precautions maintained (bed alarm on).
[2019-06-18 00:15] VITALS: BP_SYST 114
--- NOTE | 2019-06-18 00:20 | NUR ---
Jasvir Heart Rate Patient's heart rate dropped to 43 on telemonitor. I went to assess patient and B/P , HR 48. Patient is asymptomatic and denies feeling dizzy. He adds that he tends to get low heart rate, due to athletic history. Will monitor. Addendum: 06/18/19 at 0023 by Lucy Smith RN B/P correction from above is
[2019-06-18 00:48] VITALS: BP_SYST 114
--- NOTE | 2019-06-18 02:20 | NUR ---
Rounds Patient is sleeping and heart rate remains in Jasvir and dropped to 38. Patient was momentarily awakened and he denied dizziness. Upon awakening heart rate increased up to 62.
--- NOTE | 2019-06-18 02:35 | NUR ---
UP to restroom Patient requested help to go to the restroom. He reports a small bowel movement. Returned to bed. Pillow cases and shirt were damp and were replaced with dry linen. Patient is wearing white t-shirt, he refuses hospital gown, prefers to wear his shirt. Safety precautions maintained, bed alarm on, and call light w/in reach.
[2019-06-18 04:00] VITALS: BP_SYST 100
--- NOTE | 2019-06-18 04:16 | NUR ---
Rounds Patient is resting, symmetrical rise and fall of chest, non-labored breathing. HR rate remains tanja on monitor at 42, respirations at 18. Call light w/in reach. Will monitor.
[2019-06-18 04:37] VITALS: BP_SYST 125
--- NOTE | 2019-06-18 04:41 | NUR ---
OOB Patient is awake, and out of bed for use of the restroom, he voided. Vitals taken, B/P 125/60, HR 39. Patient has no further needs and would like the lights dim again. Call light w/in reach.
[2019-06-18 04:46] LABS: ANION GAP 5 (5-15); CALCIUM 8.7 mg/dL (8.4-11.0); CHLORIDE 106 mmol/L (98-107); GLUCOSE 145 mg/dL (70-99); POTASSIUM 4.3 mmol/L (3.5-5.1); SODIUM SERUM 137 mmol/L (136-145); UREA NITROGEN, BLOOD 26 mg/dL (8-21)
[2019-06-18 06:12] LABS: BASOPHILS % (AUTO) 0.1 % (0.0-2.0); HEMATOCRIT 34.7 % (36-54); HEMOGLOBIN 11.7 g/dL (14.0-18.0); LYMPHOCYTES # (AUTO) 1.4 K/uL (1.0-5.5); LYMPHOCYTES % (AUTO) 9.1 % (20.5-51.5); MEAN CORPUSCULAR HEMOGLOBIN 29 pg (27-31); MEAN CORPUSCULAR HGB CONC 34 % (32-36); MEAN CORPUSCULAR VOLUME 87 fL (79.0-98.0); MONOCYTES % (AUTO) 6.4 % (1.7-9.3); NEUTROPHILS # (AUTO) 12.9 K/uL (1.8-7.7); NEUTROPHILS % (AUTO) 84.4 % (40.0-70.0); PLATELET COUNT (AUTO) 226 K/uL (130-430); RED BLOOD CELL COUNT(AUTO) 3.97 MIL/uL (4.2-6.2); RED CELL DISTRIBUTION WIDTH 15.6 % (9.0-15.0); WHITE BLOOD COUNT (AUTO) 15.3 K/uL (4.8-10.8)
--- NOTE | 2019-06-18 06:30 | NUR ---
Awake Patient is awake, he ambulated to restroom and returned to bed. He wants to sit on side of bed with legs dangle. He sits up steady. He is look at his personal PC. Will Monitor.
--- NOTE | 2019-06-18 07:25 | NUR ---
CLOSING NOTE Endorsed SBAR to ISHMAEL Aragon. Patient is stable, sitting on bed with legs dangle, no distress.
[2019-06-18] MEDS: DEXAMETHASONE 1 MG TABLET (DECADRON) PO SCH (08:33)
[2019-06-18] MEDS: DOCUSATE SODIUM 100 MG CAPSULE PO SCH (08:33)
[2019-06-18] MEDS: FAMOTIDINE 20 MG TABLET PO SCH (08:34)
[2019-06-18] MEDS: levETIRAcetam 500 MG TABLET PO SCH (08:34)
[2019-06-18 08:39] VITALS: BP_SYST 134
--- NOTE | 2019-06-18 08:40 | NUR ---
IV RE-INSERTION: Complaining of bleeding IV site accidentally removed , pressure dressing applied Restarted on left forearm. Successful after 1 attempt g.22 Resumed current IVF Will observe for any signs of infiltration.
[2019-06-18] MEDS ORDERED: TAMSULOSIN HCL 0.4 MG CAP PO SCH (09:00)
[2019-06-18] MEDS ORDERED: FINASTERIDE 5 MG TABLET (PROSCAR) PO SCH (09:00)
[2019-06-18] MEDS ORDERED: TERAZOSIN HCL 1 MG CAPSULE (HYTRIN) GT SCH (09:00)
[2019-06-18] MEDS: cefTRIAXone 1 GM in D5W 50 ML IV SCH (09:10)
[2019-06-18] MEDS ORDERED: LEVAQUIN PO (09:56)
[2019-06-18] MEDS ORDERED: LEVE500T9 PO (09:57)
--- NOTE | 2019-06-18 10:00 | NUR ---
Patient alert/oriented x4 , ambulate with steady gait able to urinate with out burning sensation no dizziness denies any headache, seen and examined by DR. Murillo , with order to discharge after IV antibiotic and physical therapy evaluation.
[2019-06-18 10:23] VITALS: BP_SYST 127
--- NOTE | 2019-06-18 11:50 | NUR ---
D/C Patient Patient given medication reconciliation form and D/C instructions. Exit Care provided. Patient verbalized understanding. MD discussed with patient the results and treatment provided. Ambulatory with steady gait for discharge to home. Patient in stable condition, ID band removed. IV catheter removed, intact and dressing applied, no active bleeding. Rx LEVAQUIN/KEPPRA of given. Patient educated on pain management. All belongings sent with patient.
--- NOTE | 2019-06-18 12:15 | NUR ---
Discharge home ambulatory steady gait, accompanied by the .
== END 2019-06-18 12:15 | disposition home or self-care (01) | DRG 83 ==
LOC: SED 07:52 → STU 10:12
PROVIDERS: ADMIT General Practice; ATTEND General Practice
DX: S06.5X9A Traumatic subdural hemorrhage with loss of consciousness of unspecified duration, initial encounter (principal); N39.0 Urinary tract infection, site not specified; T38.0X5A Adverse effect of glucocorticoids and synthetic analogues, initial encounter; R26.9 Unspecified abnormalities of gait and mobility; G62.9 Polyneuropathy, unspecified; M10.9 Gout, unspecified; W17.89XA Other fall from one level to another, initial encounter; Y93.89 Activity, other specified; Y92.89 Other specified places as the place of occurrence of the external cause; Z79.899 Other long term (current) drug therapy; Y99.8 Other external cause status
CPT/HCPCS: 36415; 70450-TC; 70553; 80048; 80053; 81000-TC; 83036; 83735-TC; 85007; 85025; 85027; 87086; 87186-TC; 96365; 96375; 99285; A9579; G0378; J0696; J1100; J1953; J7030; J7060

== ENCOUNTER 2019-07-05 09:53 | Outpatient (CLI) | payer OTHER, MEDICARE ==
[~2019-07-05 09:53] MED LIST changes: +DEC1 PO; +FAMO20TA8 PO; +FINA5TAB3 PO; +HYT1 GT; -HYT1 PO; +LEVAQUIN PO; +LEVE500T9 PO; +TAMS-11 PO; -TAMS0.4C96 PO
== END 2019-07-05 20:59 | disposition home or self-care (01) ==
LOC: SRD 09:53
PROVIDERS: ATTEND General Practice
DX: Z09 Encounter for follow-up examination after completed treatment for conditions other than malignant neoplasm (principal)
CPT/HCPCS: 70450-TC

== ENCOUNTER 2019-07-29 09:32 | Emergency (ER) | payer OTHER, MEDICARE ==
[~2019-07-29] VITALS: Ht 188 cm; Wt 99.8 kg
[2019-07-29 09:35] VITALS: BP_SYST 138
--- NOTE | 2019-07-29 09:35 | NUR ---
BROUGHT BACK TO BED #3 AND TRIAGED.REPORT GIVEN TO JAH
--- NOTE | 2019-07-29 10:10 | NUR ---
PATIENT CAME IN COMPLAINING OF LEFT LOWER ABD PAIN FOR ABOUT 2 NIGHTS. PATIENT COMPLAINING OF NO PAIN AT MOMENT BUT STATES PAIN WORST AT NIGHT. PATIENT STATES HE GOT DIAGNOSED WITH UTI YESTERDAY AND IS TAKING LEVOQUIN. PATIENT ALSO TOOK TYLENOL. PATIENT DENEIS SOB NAUSEA AND VOMITING. PATIENT ALERT AND ORIENTED X4.
--- NOTE | 2019-07-29 10:51 | NUR ---
ER Dr. VÁSQUEZ at bedside examining patient.
--- NOTE | 2019-07-29 11:01 | NUR ---
LAB AT BEDSIDE COLLECTING LAB
[2019-07-29 11:12] LABS: BASOPHILS # (AUTO) 0.1 K/uL (0.0-0.2); BASOPHILS % (AUTO) 0.7 % (0.0-2.0); EOSINOPHILS % (AUTO) 0.1 % (0.0-4.0); HEMATOCRIT 35.2 % (36-54); LYMPHOCYTES # (AUTO) 0.7 K/uL (1.0-5.5); LYMPHOCYTES % (AUTO) 7.6 % (20.5-51.5); MEAN CORPUSCULAR HEMOGLOBIN 28 pg (27-31); MEAN CORPUSCULAR HGB CONC 34 % (32-36); MEAN CORPUSCULAR VOLUME 83 fL (79.0-98.0); MONOCYTES # (AUTO) 0.6 K/uL (0.0-1.0); MONOCYTES % (AUTO) 6.1 % (1.7-9.3); NEUTROPHILS # (AUTO) 8.1 K/uL (1.8-7.7); NEUTROPHILS % (AUTO) 85.5 % (40.0-70.0); PLATELET COUNT (AUTO) 284 K/uL (130-430); RED BLOOD CELL COUNT(AUTO) 4.24 MIL/uL (4.2-6.2); RED CELL DISTRIBUTION WIDTH 15.8 % (9.0-15.0); WHITE BLOOD COUNT (AUTO) 9.4 K/uL (4.8-10.8)
[2019-07-29 11:14] LABS: BILIRUBIN,URINE NEGATIVE (NEGATIVE); BLOOD, URINE NEGATIVE (NEGATIVE); CLARITY/URINE CLEAR (CLEAR); COLOR,URINE YELLOW (YELLOW); GLUCOSE,URINE NEGATIVE (NEGATIVE); KETONES,URINE NEGATIVE (NEGATIVE); LEUKOCYTE ESTERASE ,URINE NEGATIVE (NEGATIVE); NITRITE, URINE POSITIVE (NEGATIVE); PROTEIN URINE NEGATIVE (NEGATIVE); UROBILINOGEN,URINE 0.2 (0.2-1.0)
--- NOTE | 2019-07-29 11:17 | NUR ---
PATIENT LEFT TO RADIOLOGY VIA WHEEL CHAIR IN STABLE CONDITION.
[2019-07-29 11:20] LABS: ANION GAP 7 (5-15); CALCIUM 8.6 mg/dL (8.4-11.0); CHLORIDE 101 mmol/L (98-107); CREATININE 1.24 mg/dL (0.55-1.30); GLUCOSE 180 mg/dL (70-99); SODIUM SERUM 135 mmol/L (136-145); UREA NITROGEN, BLOOD 16 mg/dL (8-21)
[2019-07-29 11:27] LABS: ALANINE AMINOTRANSFERASE 20 U/L (12-78); ALBUMIN 2.3 g/dL (3.4-4.8); ASPARTATE AMINOTRANSFERASE 13 U/L (10-37); LIPASE 155 U/L (73-393); TOTAL BILIRUBIN 0.5 mg/dL (0.0-1.0)
--- NOTE | 2019-07-29 11:27 | NUR ---
PATIENT BACK FROM RADIOLOGY IN STABLE CONDITION.
[2019-07-29 12:34] VITALS: BP_SYST 124
--- NOTE | 2019-07-29 12:34 | NUR ---
Patient given written and verbal discharge instructions and verbalizes understanding. ER MD discussed with patient the results and treatment provided. Patient in stable condition. ID arm band removed. Rx of flagyl cipro given. Patient educated on pain management and to follow up with PMD. Pain Scale 3/10. Opportunity for questions provided and answered. Medication side effect fact sheet provided.
== END 2019-07-29 12:34 | disposition home or self-care (01) ==
LOC: SED 09:32
DX: K57.32 Diverticulitis of large intestine without perforation or abscess without bleeding (principal); N39.0 Urinary tract infection, site not specified; Z79.899 Other long term (current) drug therapy
CPT/HCPCS: 36415; 80053; 81003; 83690-TC; 85025; 99284

== ENCOUNTER 2019-09-09 12:54 | Outpatient (CLI) | payer OTHER, MEDICARE | END 2019-09-09 20:58 | disposition home or self-care (01) | LOC: SUS 12:54 | DX: Z09 Encounter for follow-up examination after completed treatment for conditions other than malignant neoplasm (principal); I61.8 Other nontraumatic intracerebral hemorrhage; I82.402 Acute embolism and thrombosis of unspecified deep veins of left lower extremity; R60.9 Edema, unspecified | CPT/HCPCS: 70450-TC; 93971 ==

== ENCOUNTER 2019-09-22 20:22 | Emergency (ER) | payer OTHER, MEDICARE ==
[~2019-09-22] VITALS: Ht 188 cm; Wt 102.1 kg
[2019-09-22 20:30] VITALS: BP_SYST 151
--- NOTE | 2019-09-22 20:50 | NUR ---
Patient to ER bed 1 for evaluation. Side rails up. Report given to Kimberli QUIÑONES.
--- NOTE | 2019-09-22 20:55 | NUR ---
Patient AOx4, presents to ED via for complaint of left leg swelling and pain that worsened today. Patient states that he was diagnosed with a DVT over a week ago and site appears more swollen today. Patient states that he was not treated for the DVT because he also has a brain bleed. Patient had a filter placed to site. Patient states he got a shingles after treating the brain bleed. No other symptoms or complaints. at bedside.
--- NOTE | 2019-09-22 21:00 | NUR ---
ER MD Gama at bedside for medical evaluation.
--- NOTE | 2019-09-22 21:00 | NUR ---
# 20 gauge angiocath placed to RAC. Use of asceptic technique. Opsite placed over site. Blood return noted. Blood for lab drawn from site. Flushed with 10 cc of normal saline. No evidence of infiltration noted. Patient tolerated well.
[2019-09-22 21:25] LABS: BASOPHILS % (AUTO) 0.6 % (0.0-2.0); EOSINOPHILS # (AUTO) 0.1 K/uL (0.0-0.4); HEMATOCRIT 31.6 % (36-54); HEMOGLOBIN 10.9 g/dL (14.0-18.0); LYMPHOCYTES # (AUTO) 1.7 K/uL (1.0-5.5); LYMPHOCYTES % (AUTO) 25.5 % (20.5-51.5); MEAN CORPUSCULAR HEMOGLOBIN 29 pg (27-31); MEAN CORPUSCULAR HGB CONC 34 % (32-36); MEAN CORPUSCULAR VOLUME 84 fL (79.0-98.0); MONOCYTES # (AUTO) 0.7 K/uL (0.0-1.0); MONOCYTES % (AUTO) 10.7 % (1.7-9.3); NEUTROPHILS # (AUTO) 4.1 K/uL (1.8-7.7); NEUTROPHILS % (AUTO) 62.2 % (40.0-70.0); PLATELET COUNT (AUTO) 242 K/uL (130-430); RED BLOOD CELL COUNT(AUTO) 3.75 MIL/uL (4.2-6.2); WHITE BLOOD COUNT (AUTO) 6.5 K/uL (4.8-10.8)
[2019-09-22 21:37] LABS: ANION GAP 8 (5-15); CALCIUM 8.7 mg/dL (8.4-11.0); CHLORIDE 103 mmol/L (98-107); CREATININE 1.17 mg/dL (0.55-1.30); GLUCOSE 131 mg/dL (70-99); POTASSIUM 3.6 mmol/L (3.5-5.1); SODIUM SERUM 138 mmol/L (136-145); UREA NITROGEN, BLOOD 13 mg/dL (8-21)
[2019-09-22 21:42] LABS: ALANINE AMINOTRANSFERASE 16 U/L (12-78); ASPARTATE AMINOTRANSFERASE 16 U/L (10-37); INR 1.1 (0.80-1.20); PROTHROMBIN TIME 10.8 SECS (9.5-12.5); TOTAL BILIRUBIN 0.5 mg/dL (0.0-1.0)
--- NOTE | 2019-09-22 22:30 | NUR ---
Patient resting comfortably. at bedside.
[2019-09-23 00:20] VITALS: BP_SYST 156
--- NOTE | 2019-09-23 00:20 | NUR ---
Patient given written and verbal discharge instructions and verbalizes understanding. ER MD discussed with patient the results and treatment provided. Patient in stable condition. ID arm band removed. IV catheter removed intact and dressing applied, no active bleeding. No Rx given. Patient educated on pain management and to follow up with PMD. Pain Scale 2/10 tolerable to patient. Opportunity for questions provided and answered. Medication side effect fact sheet provided.
== END 2019-09-23 00:20 | disposition home or self-care (01) ==
LOC: SED 20:22
DX: I82.502 Chronic embolism and thrombosis of unspecified deep veins of left lower extremity (principal); Z88.8 Allergy status to other drugs, medicaments and biological substances
CPT/HCPCS: 36415; 80053; 85025; 85379; 85610-TC; 85730-TC; 93005; 93971; 99284

== ENCOUNTER 2020-01-05 09:52 | Outpatient (CLI) | payer OTHER, MEDICARE | END 2020-01-05 21:12 | disposition home or self-care (01) | LOC: SCT 09:52 | DX: S06.5X9A Traumatic subdural hemorrhage with loss of consciousness of unspecified duration, initial encounter (principal); G31.9 Degenerative disease of nervous system, unspecified; D35.2 Benign neoplasm of pituitary gland; X58.XXXA Exposure to other specified factors, initial encounter; Y93.89 Activity, other specified; Y92.89 Other specified places as the place of occurrence of the external cause; Y99.8 Other external cause status | CPT/HCPCS: 70450-TC ==

== ENCOUNTER 2020-04-20 08:33 | Outpatient (CLI) | payer OTHER, MEDICARE ==
[2020-04-20 09:56] LABS: BASOPHILS % (AUTO) 0.3 % (0.0-2.0); EOSINOPHILS % (AUTO) 0.7 % (0.0-4.0); HEMATOCRIT 43.6 % (36-54); HEMOGLOBIN 15.1 g/dL (14.0-18.0); LYMPHOCYTES # (AUTO) 3.1 K/uL (1.0-5.5); LYMPHOCYTES % (AUTO) 45.1 % (20.5-51.5); MEAN CORPUSCULAR HEMOGLOBIN 30 pg (27-31); MEAN CORPUSCULAR HGB CONC 35 % (32-36); MEAN CORPUSCULAR VOLUME 88 fL (79.0-98.0); MONOCYTES # (AUTO) 0.5 K/uL (0.0-1.0); MONOCYTES % (AUTO) 7.7 % (1.7-9.3); NEUTROPHILS # (AUTO) 3.1 K/uL (1.8-7.7); NEUTROPHILS % (AUTO) 46.2 % (40.0-70.0); PLATELET COUNT (AUTO) 191 K/uL (130-430); RED BLOOD CELL COUNT(AUTO) 4.95 MIL/uL (4.2-6.2); RED CELL DISTRIBUTION WIDTH 13.9 % (9.0-15.0); WHITE BLOOD COUNT (AUTO) 6.8 K/uL (4.8-10.8)
[2020-04-20 10:00] LABS: BILIRUBIN,URINE NEGATIVE (NEGATIVE); CLARITY/URINE CLEAR (CLEAR); COLOR,URINE YELLOW (YELLOW); GLUCOSE,URINE NEGATIVE (NEGATIVE); KETONES,URINE NEGATIVE (NEGATIVE); LEUKOCYTE ESTERASE ,URINE 1+ (NEGATIVE); NITRITE, URINE POSITIVE (NEGATIVE); PROTEIN URINE NEGATIVE (NEGATIVE); UROBILINOGEN,URINE 0.2 (0.2-1.0)
[2020-04-20 10:01] LABS: BLOOD, URINE TRACE (NEGATIVE)
[2020-04-20 10:06] LABS: BACTERIA,URINE MODERATE /HPF (None Seen); WBC,URINE 20-50 /HPF (0-3)
[2020-04-20 10:25] LABS: ALANINE AMINOTRANSFERASE 32 U/L (12-78); ASPARTATE AMINOTRANSFERASE 17 U/L (10-37); CALCIUM 9.2 mg/dL (8.4-11.0); CHOLESTEROL 188 mg/dL (<200); CREATININE 1.15 mg/dL (0.55-1.30); GLUCOSE 109 mg/dL (70-99); HDL CHOLESTEROL 40 mg/dL (>45); LDL CHOLESTEROL 108 mg/dL (<100); POTASSIUM 4.3 mmol/L (3.5-5.1); SODIUM SERUM 133 mmol/L (136-145); THYROID STIMULATING HORMONE 1.54 uIu/mL (0.34-4.82); TOTAL BILIRUBIN 0.8 mg/dL (0.0-1.0); TRIGLYCERIDES 251 mg/dL (30-150); UREA NITROGEN, BLOOD 15 mg/dL (8-21)
[2020-04-20 10:33] LABS: ANION GAP 4 (5-15); CHLORIDE 99 mmol/L (98-107)
[2020-04-21 05:07] LABS: % FREE PSA 27.7 % (.); FREE PSA 0.36 ng/mL; PROSTATE SPECIFIC AG TOTAL 1.3 ng/mL (0.0-4.0)
[2020-04-21 07:54] LABS: HEMOGLOBIN A1C 5.7 % (4.8-5.6)
== END 2020-04-20 20:12 | disposition home or self-care (01) ==
LOC: SLB 08:33
DX: I10 Essential (primary) hypertension (principal); E78.00 Pure hypercholesterolemia, unspecified; E03.9 Hypothyroidism, unspecified; N40.1 Benign prostatic hyperplasia with lower urinary tract symptoms; N39.0 Urinary tract infection, site not specified; R73.01 Impaired fasting glucose; Z12.11 Encounter for screening for malignant neoplasm of colon
CPT/HCPCS: 36415; 80053; 80061; 81000-TC; 83036; 84153; 84443-TC; 85025

== ENCOUNTER 2020-08-24 09:03 | Outpatient (CLI) | payer OTHER, MEDICARE ==
[2020-08-24 10:02] LABS: BILIRUBIN,URINE NEGATIVE (NEGATIVE); BLOOD, URINE NEGATIVE (NEGATIVE); CLARITY/URINE CLEAR (CLEAR); COLOR,URINE YELLOW (YELLOW); GLUCOSE,URINE NEGATIVE (NEGATIVE); KETONES,URINE NEGATIVE (NEGATIVE); LEUKOCYTE ESTERASE ,URINE NEGATIVE (NEGATIVE); NITRITE, URINE POSITIVE (NEGATIVE); PH,URINE 5.5 (5.0-8.0); PROTEIN URINE NEGATIVE (NEGATIVE); UROBILINOGEN,URINE 0.2 (0.2-1.0)
[2020-08-24 10:12] LABS: BASOPHILS % (AUTO) 0.5 % (0.0-2.0); EOSINOPHILS % (AUTO) 0.9 % (0.0-4.0); HEMOGLOBIN 14.2 g/dL (14.0-18.0); LYMPHOCYTES # (AUTO) 2.1 K/uL (1.0-5.5); LYMPHOCYTES % (AUTO) 38.1 % (20.5-51.5); MEAN CORPUSCULAR HEMOGLOBIN 31 pg (27-31); MEAN CORPUSCULAR HGB CONC 35 % (32-36); MEAN CORPUSCULAR VOLUME 88 fL (79.0-98.0); MONOCYTES # (AUTO) 0.5 K/uL (0.0-1.0); MONOCYTES % (AUTO) 8.5 % (1.7-9.3); NEUTROPHILS # (AUTO) 2.8 K/uL (1.8-7.7); PLATELET COUNT (AUTO) 176 K/uL (130-430); RED BLOOD CELL COUNT(AUTO) 4.58 MIL/uL (4.2-6.2); RED CELL DISTRIBUTION WIDTH 14.1 % (9.0-15.0); WHITE BLOOD COUNT (AUTO) 5.4 K/uL (4.8-10.8)
[2020-08-24 10:22] LABS: BACTERIA,URINE MODERATE /HPF (None Seen); RBC,URINE 0-3 /HPF (0-3); WBC,URINE 0-3 /HPF (0-3)
[2020-08-24 10:25] LABS: ALANINE AMINOTRANSFERASE 38 U/L (12-78); ALBUMIN 3.6 g/dL (3.4-4.8); ANION GAP 4 (5-15); ASPARTATE AMINOTRANSFERASE 26 U/L (10-37); CALCIUM 8.8 mg/dL (8.4-11.0); CHLORIDE 103 mmol/L (98-107); CHOLESTEROL 154 mg/dL (<200); CREATININE 1.22 mg/dL (0.55-1.30); GLUCOSE 124 mg/dL (70-99); HDL CHOLESTEROL 39 mg/dL (>45); LDL CHOLESTEROL 102 mg/dL (<100); POTASSIUM 3.7 mmol/L (3.5-5.1); SODIUM SERUM 134 mmol/L (136-145); THYROID STIMULATING HORMONE 1.65 uIu/mL (0.34-4.82); TOTAL BILIRUBIN 1.1 mg/dL (0.0-1.0); TRIGLYCERIDES 141 mg/dL (30-150); UREA NITROGEN, BLOOD 13 mg/dL (8-21)
== END 2020-08-24 20:38 | disposition home or self-care (01) ==
LOC: SLB 09:03
DX: E78.00 Pure hypercholesterolemia, unspecified (principal); E03.9 Hypothyroidism, unspecified; R73.01 Impaired fasting glucose; N39.0 Urinary tract infection, site not specified; Z12.5 Encounter for screening for malignant neoplasm of prostate; Z12.11 Encounter for screening for malignant neoplasm of colon
CPT/HCPCS: 36415; 80053; 80061; 81000-TC; 82272; 82306; 84153; 84443-TC; 85025

== ENCOUNTER 2020-10-25 10:20 | Outpatient (CLI) | payer OTHER, MEDICARE | END 2020-10-25 20:45 | disposition home or self-care (01) | LOC: SUS 10:20 | PROVIDERS: ATTEND Urology | DX: N43.3 Hydrocele, unspecified (principal); R33.9 Retention of urine, unspecified; N40.0 Benign prostatic hyperplasia without lower urinary tract symptoms; N28.1 Cyst of kidney, acquired | CPT/HCPCS: 76870-TC ==

== ENCOUNTER 2021-02-24 08:19 | Outpatient (CLI) | payer OTHER, MEDICARE ==
[2021-02-24 08:48] LABS: ALANINE AMINOTRANSFERASE 38 U/L (12-78); ALBUMIN 3.7 g/dL (3.4-4.8); ANION GAP 4 (5-15); ASPARTATE AMINOTRANSFERASE 23 U/L (10-37); CALCIUM 8.9 mg/dL (8.4-11.0); CHLORIDE 108 mmol/L (98-107); CREATININE 1.14 mg/dL (0.55-1.30); GLUCOSE 98 mg/dL (70-99); SODIUM SERUM 143 mmol/L (136-145); TOTAL BILIRUBIN 0.8 mg/dL (0.0-1.0); UREA NITROGEN, BLOOD 16 mg/dL (8-21)
== END 2021-02-24 20:57 | disposition home or self-care (01) ==
LOC: SLB 08:19
DX: R73.01 Impaired fasting glucose (principal)
CPT/HCPCS: 36415; 80053; 83036

== ENCOUNTER 2021-04-10 10:04 | Emergency (ER) | payer OTHER, MEDICARE ==
[~2021-04-10] VITALS: Ht 188 cm; Wt 104.3 kg
[2021-04-10 10:08] VITALS: BP_SYST 134
--- NOTE | 2021-04-10 10:14 | NUR ---
Patient to ER bed 7 to gown for evaluation. Side rails up. Report given to BOBBI QUIÑONES.
--- NOTE | 2021-04-10 10:20 | NUR ---
PT CAME IN FROM HOME C/O RIGHT FOOT PAIN, STATES MOSTLY TOP OF FOOT, NO SWELLING OR REDNESS NOTED. PT REPORTS HX OF GOUT BUT HAS NOT BEEN ON AN RECENT RX. DENIES FALL OR TRAUMA. PT REPORTS HE HAS BEEN UNDERGOING PT FOR LIMP AND STRENGTHENING. PT IS AMBULATORY UPON ARRIVAL, AAOX4, V/S STABLE.
--- NOTE | 2021-04-10 10:25 | NUR ---
ER DR. VU AT THE BEDSIDE EXAMINING PT
--- NOTE | 2021-04-10 10:40 | NUR ---
PORTABLE X-RAY AT THE BEDSIDE
[2021-04-10] MEDS ORDERED: CEPH500C2 PO (11:06)
[2021-04-10] MEDS ORDERED: INDO-12 PO (11:06)
[2021-04-10 11:28] VITALS: BP_SYST 134
--- NOTE | 2021-04-10 11:29 | NUR ---
Patient given written and verbal discharge instructions and verbalizes understanding. ER MD discussed with patient the results and treatment provided. Patient in stable condition. ID arm band removed. Rx of CEPHALEXIN AND INDOCIN given. Patient educated on pain management and to follow up with PMD. Pain Scale 2/10. Opportunity for questions provided and answered. Medication side effect fact sheet provided.
== END 2021-04-10 11:29 | disposition home or self-care (01) ==
LOC: SED 10:04
DX: M19.071 Primary osteoarthritis, right ankle and foot (principal); Z79.899 Other long term (current) drug therapy
CPT/HCPCS: 99283

== ENCOUNTER 2021-08-21 14:03 | Emergency (ER) | payer OTHER, MEDICARE ==
[~2021-08-21] VITALS: Ht 188 cm; Wt 108.9 kg
[~2021-08-21 14:03] MED LIST changes: +CEPH500C2 PO; +INDO-12 PO
[2021-08-21 14:30] VITALS: BP_SYST 129
--- NOTE | 2021-08-21 14:30 | NUR ---
Patient to ER bed 1 to gown for evaluation. Side rails up.
--- NOTE | 2021-08-21 14:55 | NUR ---
Pt came into ER with comaplint of left lower abdominal sharp 10/10 Xtoday in the AM. Last BM was this morning. Pt denies N/V/D. Pt is AAOX4 speaking full sentences resting in [employer]. Pt reports he has been self catheterizing for urine drainage for approximatley 1 year.
--- NOTE | 2021-08-21 15:04 | NUR ---
ER at bedside examining patient.
--- NOTE | 2021-08-21 15:20 | NUR ---
Lab at bedside.
--- NOTE | 2021-08-21 15:40 | NUR ---
Note heather in EDM - 08/21/21 at 1600 by AMI Pt back from Ct.
--- NOTE | 2021-08-21 15:49 | NUR ---
Patient transported to radiology via gurney, accompanied by linda.
[2021-08-21 15:50] LABS: BASOPHILS % (AUTO) 0.5 % (0.0-2.0); EOSINOPHILS # (AUTO) 0.1 K/uL (0.0-0.4); EOSINOPHILS % (AUTO) 1.3 % (0.0-4.0); HEMOGLOBIN 13.8 g/dL (14.0-18.0); LYMPHOCYTES # (AUTO) 2.3 K/uL (1.0-5.5); LYMPHOCYTES % (AUTO) 24.9 % (20.5-51.5); MEAN CORPUSCULAR HEMOGLOBIN 31 pg (27-31); MEAN CORPUSCULAR HGB CONC 35 % (32-36); MEAN CORPUSCULAR VOLUME 87 fL (79.0-98.0); MONOCYTES # (AUTO) 0.8 K/uL (0.0-1.0); MONOCYTES % (AUTO) 8.8 % (1.7-9.3); NEUTROPHILS % (AUTO) 64.5 % (40.0-70.0); PLATELET COUNT (AUTO) 190 K/uL (130-430); RED BLOOD CELL COUNT(AUTO) 4.48 MIL/uL (4.2-6.2); RED CELL DISTRIBUTION WIDTH 14.1 % (9.0-15.0); WHITE BLOOD COUNT (AUTO) 9.4 K/uL (4.8-10.8)
--- NOTE | 2021-08-21 16:00 | NUR ---
Pt back from CT.
--- NOTE | 2021-08-21 16:00 | NUR ---
In/Out catheter performed per pt request. Sterile technique applied. Clear yellow urine collected and sent to lab.
[2021-08-21 16:02] LABS: ANION GAP 9 (5-15); CALCIUM 8.8 mg/dL (8.4-11.0); CHLORIDE 104 mmol/L (98-107); CREATININE 1.29 mg/dL (0.55-1.30); GLUCOSE 110 mg/dL (70-99); POTASSIUM 3.7 mmol/L (3.5-5.1); SODIUM SERUM 139 mmol/L (136-145); UREA NITROGEN, BLOOD 15 mg/dL (8-21)
[2021-08-21 16:08] LABS: ALANINE AMINOTRANSFERASE 31 U/L (12-78); ALBUMIN 3.4 g/dL (3.4-4.8); ASPARTATE AMINOTRANSFERASE 23 U/L (10-37); LIPASE 131 U/L (73-393); TOTAL BILIRUBIN 0.6 mg/dL (0.0-1.0)
[2021-08-21 16:27] LABS: BILIRUBIN,URINE NEGATIVE (NEGATIVE); BLOOD, URINE NEGATIVE (NEGATIVE); CLARITY/URINE CLEAR (CLEAR); COLOR,URINE YELLOW (YELLOW); GLUCOSE,URINE NEGATIVE (NEGATIVE); KETONES,URINE NEGATIVE (NEGATIVE); LEUKOCYTE ESTERASE ,URINE NEGATIVE (NEGATIVE); NITRITE, URINE NEGATIVE (NEGATIVE); PROTEIN URINE NEGATIVE (NEGATIVE); UROBILINOGEN,URINE 0.2 (0.2-1.0)
[2021-08-21] MEDS ORDERED: AMOX-426 PO (18:17)
[2021-08-21] MEDS ORDERED: HYDR-3917 PO (18:17)
[2021-08-21 18:30] VITALS: BP_SYST 133
[2021-08-21] MEDS ORDERED: AMOXICILLIN/CLAVULANATE POTASSIUM 875 MG TABLET PO ONE (18:30)
--- NOTE | 2021-08-21 18:30 | NUR ---
Patient given written and verbal discharge instructions and verbalizes understanding. ER MD discussed with patient the results and treatment provided. Patient in stable condition. ID arm band removed. Rx of augmentin given. Patient educated on pain management and to follow up with PMD. Pain Scale 0/10. Opportunity for questions provided and answered. Medication side effect fact sheet provided.
== END 2021-08-21 18:30 | disposition home or self-care (01) ==
LOC: SED 14:03
DX: K57.92 Diverticulitis of intestine, part unspecified, without perforation or abscess without bleeding (principal); Z79.899 Other long term (current) drug therapy
CPT/HCPCS: 36415; 76376; 80053; 81003; 83690; 85025; 99284

== ENCOUNTER 2021-08-23 10:59 | Outpatient (CLI) | payer OTHER, MEDICARE ==
[~2021-08-23 10:59] MED LIST changes: +AMOX-426 PO; +HYDR-3917 PO
[2021-08-23 11:58] LABS: BASOPHILS % (AUTO) 0.6 % (0.0-2.0); EOSINOPHILS # (AUTO) 0.1 K/uL (0.0-0.4); EOSINOPHILS % (AUTO) 1.1 % (0.0-4.0); HEMATOCRIT 39.2 % (36-54); HEMOGLOBIN 13.8 g/dL (14.0-18.0); LYMPHOCYTES # (AUTO) 2.5 K/uL (1.0-5.5); MEAN CORPUSCULAR HEMOGLOBIN 31 pg (27-31); MEAN CORPUSCULAR HGB CONC 35 % (32-36); MEAN CORPUSCULAR VOLUME 87 fL (79.0-98.0); MONOCYTES # (AUTO) 0.5 K/uL (0.0-1.0); MONOCYTES % (AUTO) 7.2 % (1.7-9.3); NEUTROPHILS # (AUTO) 4.2 K/uL (1.8-7.7); NEUTROPHILS % (AUTO) 57.1 % (40.0-70.0); PLATELET COUNT (AUTO) 193 K/uL (130-430); RED BLOOD CELL COUNT(AUTO) 4.51 MIL/uL (4.2-6.2); RED CELL DISTRIBUTION WIDTH 14.4 % (9.0-15.0); WHITE BLOOD COUNT (AUTO) 7.3 K/uL (4.8-10.8)
[2021-08-23 23:05] LABS: ALANINE AMINOTRANSFERASE 32 U/L (12-78); ALBUMIN 3.4 g/dL (3.4-4.8); ANION GAP 11 (5-15); ASPARTATE AMINOTRANSFERASE 26 U/L (10-37); CALCIUM 8.9 mg/dL (8.4-11.0); CHLORIDE 106 mmol/L (98-107); CHOLESTEROL 131 mg/dL (<200); CREATININE 1.28 mg/dL (0.55-1.30); GLUCOSE 115 mg/dL (70-99); HDL CHOLESTEROL 43 mg/dL (>45); LDL CHOLESTEROL 88 mg/dL (<100); POTASSIUM 4.1 mmol/L (3.5-5.1); SODIUM SERUM 141 mmol/L (136-145); TRIGLYCERIDES 79 mg/dL (30-150); UREA NITROGEN, BLOOD 15 mg/dL (8-21)
[2021-08-24 18:06] LABS: PROSTATE SPECIFIC AG 2.1 ng/mL (0.0-4.0)
== END 2021-08-23 20:51 | disposition home or self-care (01) ==
LOC: SLB 10:59
PROVIDERS: ATTEND Family Medicine
DX: Z12.5 Encounter for screening for malignant neoplasm of prostate (principal); E11.65 Type 2 diabetes mellitus with hyperglycemia; I10 Essential (primary) hypertension; E78.00 Pure hypercholesterolemia, unspecified
CPT/HCPCS: 36415; 80053; 80061; 83036; 85025; G0103; 84153

== ENCOUNTER 2021-11-30 10:40 | Outpatient (CLI) | payer OTHER, MEDICARE ==
[~2021-11-30 10:40] MED LIST changes: +CEPH-548 PO; -CEPH500C2 PO
[2021-11-30 12:12] LABS: BASOPHILS % (AUTO) 0.5 % (0.0-2.0); EOSINOPHILS % (AUTO) 0.7 % (0.0-4.0); HEMATOCRIT 41.5 % (36-54); HEMOGLOBIN 14.4 g/dL (14.0-18.0); LYMPHOCYTES # (AUTO) 2.4 K/uL (1.0-5.5); LYMPHOCYTES % (AUTO) 42.1 % (20.5-51.5); MEAN CORPUSCULAR HEMOGLOBIN 30 pg (27-31); MEAN CORPUSCULAR HGB CONC 35 % (32-36); MEAN CORPUSCULAR VOLUME 85 fL (79.0-98.0); MONOCYTES # (AUTO) 0.4 K/uL (0.0-1.0); NEUTROPHILS # (AUTO) 2.9 K/uL (1.8-7.7); NEUTROPHILS % (AUTO) 49.7 % (40.0-70.0); PLATELET COUNT (AUTO) 192 K/uL (130-430); RED BLOOD CELL COUNT(AUTO) 4.88 MIL/uL (4.2-6.2); RED CELL DISTRIBUTION WIDTH 14.3 % (9.0-15.0); WHITE BLOOD COUNT (AUTO) 5.8 K/uL (4.8-10.8)
[2021-11-30 12:50] LABS: ALANINE AMINOTRANSFERASE 31 U/L (12-78); ALBUMIN 3.9 g/dL (3.4-4.8); ANION GAP 7 (5-15); ASPARTATE AMINOTRANSFERASE 22 U/L (10-37); CALCIUM 9.5 mg/dL (8.4-11.0); CHLORIDE 105 mmol/L (98-107); CREATININE 1.17 mg/dL (0.55-1.30); GLUCOSE 112 mg/dL (70-99); POTASSIUM 4.6 mmol/L (3.5-5.1); SODIUM SERUM 143 mmol/L (136-145); THYROID STIMULATING HORMONE 1.22 uIu/mL (0.36-3.74); TOTAL BILIRUBIN 0.9 mg/dL (0.0-1.0); UREA NITROGEN, BLOOD 16 mg/dL (8-21)
[2021-11-30 13:02] LABS: CHOLESTEROL 196 mg/dL (<200); HDL CHOLESTEROL 44 mg/dL (>45); LDL CHOLESTEROL 126 mg/dL (<100); TRIGLYCERIDES 164 mg/dL (30-150)
== END 2021-11-30 20:42 | disposition home or self-care (01) ==
LOC: SLB 10:40
PROVIDERS: ATTEND Internal Medicine Geriatric Medicine
DX: I11.9 Hypertensive heart disease without heart failure (principal); D50.8 Other iron deficiency anemias; E78.00 Pure hypercholesterolemia, unspecified
CPT/HCPCS: 36415; 80053; 80061; 84443; 85025

== ENCOUNTER 2021-12-24 18:27 | Inpatient (IN) | payer OTHER, BC, SELFPAY ==
[~2021-12-24] VITALS: Ht 188 cm; Wt 100.2 kg
[2021-12-24 18:57] VITALS: BP_SYST 144
--- NOTE | 2021-12-24 18:57 | NUR ---
Placed in room 01 . Placed on desk monitor, blood pressure machine and pulse oximeter. To gown for exam. Side rails up.
--- NOTE | 2021-12-24 19:01 | NUR ---
ER Dr. RINCON at bedside examining patient.
--- NOTE | 2021-12-24 19:05 | NUR ---
PT WALK N FROM HOME A/OX4 AMBULATORY C/O DIZZINESS, ABDOMINAL PAIN, BACK PAIN . ED MD RINCON AT THE BED SIDE, ASSESSED PATIENT, PENDING ORDERS. PT ON THE CAMPGROUND ATTENDANT
--- NOTE | 2021-12-24 19:17 | NUR ---
REPORT GIVEN TO ISHMAEL SNYDER ALL QUESTIONS ANSWERED
[2021-12-24 19:49] LABS: BASOPHILS # (AUTO) 0.1 K/uL (0.0-0.2); BASOPHILS % (AUTO) 0.9 % (0.0-2.0); EOSINOPHILS % (AUTO) 0.2 % (0.0-4.0); HEMATOCRIT 41.3 % (36-54); HEMOGLOBIN 14.2 g/dL (14.0-18.0); LYMPHOCYTES # (AUTO) 1.5 K/uL (1.0-5.5); LYMPHOCYTES % (AUTO) 18.2 % (20.5-51.5); MEAN CORPUSCULAR HEMOGLOBIN 30 pg (27-31); MEAN CORPUSCULAR HGB CONC 34 % (32-36); MEAN CORPUSCULAR VOLUME 86 fL (79.0-98.0); MONOCYTES # (AUTO) 0.7 K/uL (0.0-1.0); MONOCYTES % (AUTO) 8.4 % (1.7-9.3); NEUTROPHILS # (AUTO) 5.9 K/uL (1.8-7.7); NEUTROPHILS % (AUTO) 72.3 % (40.0-70.0); PLATELET COUNT (AUTO) 183 K/uL (130-430); RED BLOOD CELL COUNT(AUTO) 4.82 MIL/uL (4.2-6.2); RED CELL DISTRIBUTION WIDTH 13.9 % (9.0-15.0); WHITE BLOOD COUNT (AUTO) 8.2 K/uL (4.8-10.8)
--- NOTE | 2021-12-24 20:02 | NUR ---
URINE SPECIMAN COLLECTED AND SENT TO LAB BY ISHMAEL
--- NOTE | 2021-12-24 20:08 | NUR ---
EKG DONE BY KRYS CANTU
[2021-12-24 20:10] LABS: ANION GAP 7 (5-15); CALCIUM 9.3 mg/dL (8.4-11.0); CHLORIDE 101 mmol/L (98-107); CREATININE 1.16 mg/dL (0.55-1.30); GLUCOSE 121 mg/dL (70-99); POTASSIUM 3.5 mmol/L (3.5-5.1); SODIUM SERUM 137 mmol/L (136-145); UREA NITROGEN, BLOOD 16 mg/dL (8-21)
[2021-12-24 20:19] LABS: ALANINE AMINOTRANSFERASE 20 U/L (12-78); ALBUMIN 3.6 g/dL (3.4-4.8); ASPARTATE AMINOTRANSFERASE 17 U/L (10-37); TOTAL BILIRUBIN 1.2 mg/dL (0.0-1.0)
[2021-12-24 20:23] LABS: BILIRUBIN,URINE NEGATIVE (NEGATIVE); BLOOD, URINE 1+ (NEGATIVE); COLOR,URINE YELLOW (YELLOW); GLUCOSE,URINE NEGATIVE (NEGATIVE); KETONES,URINE NEGATIVE (NEGATIVE); LEUKOCYTE ESTERASE ,URINE 1+ (NEGATIVE); NITRITE, URINE POSITIVE (NEGATIVE); PH,URINE 5.5 (5.0-8.0); PROTEIN URINE TRACE (NEGATIVE); UROBILINOGEN,URINE 0.2 (0.2-1.0)
[2021-12-24 20:26] LABS: CLARITY/URINE SLIGHTLY HAZY (CLEAR)
[2021-12-24 20:36] LABS: BACTERIA,URINE FEW /HPF (None Seen)
[2021-12-24] MEDS ORDERED: cefTRIAXone 1 GM VIAL IV ONE (21:00)
[2021-12-24] MEDS ORDERED: NACL 0.9% 1,000 ML IV ONE (21:15)
[2021-12-24] MEDS ORDERED: CEPH-548 PO ×2 (21:23)
--- NOTE | 2021-12-24 21:40 | NUR ---
20G PERIPHERAL IV STARTED IN LEFT WRIST. MEDICATIONS AND FLUIDS GIVEN PER MD ORDER.
--- NOTE | 2021-12-24 22:37 | NUR ---
Patient given written and verbal discharge instructions and verbalizes understanding. ER MD discussed with patient the results and treatment provided. Patient in stable condition. ID arm band removed. IV catheter removed intact and dressing applied, no active bleeding. Rx of CEPHALEXIN given. Patient educated on pain management and to follow up with PMD. Pain Scale 0. Opportunity for questions provided and answered. Medication side effect fact sheet provided.
[2021-12-25 17:30] VITALS: BP_SYST 140
[2021-12-25] MEDS ORDERED: NALOXONE HCL 0.4 MG/ML AMP (NARCAN) IVP PRN ×2 (17:45)
[2021-12-25] MEDS ORDERED: MORPHINE 2 MG/ML INJ. SYRINGE IVP PRN ×2 (17:45)
[2021-12-25] MEDS ORDERED: POTASSIUM CHLORIDE 20 MEQ TAB.PRT.SR PO PRN (17:45)
[2021-12-25] MEDS ORDERED: MAGNESIUM SULFATE 50 ML IV PRN (17:45)
[2021-12-25] MEDS ORDERED: DOCUSATE SODIUM 100 MG CAPSULE PO PRN (17:45)
[2021-12-25] MEDS ORDERED: ONDANSETRON HCL 4 MG/2 ML VIAL IVP PRN (17:45)
[2021-12-25] MEDS ORDERED: MUPIROCIN 2% TOPICAL OINTMENT 22 GM NS PRN (17:45)
[2021-12-25] MEDS ORDERED: LORazepam 2 MG/ML VIAL IVP PRN (17:45)
[2021-12-25] MEDS ORDERED: ZOLPIDEM TARTRATE 5 MG TABLET PO PRN (17:45)
--- NOTE | 2021-12-25 17:45 | NUR ---
ADMISSION NOTE Received patient Direct Admit via wheelchair. Patient AAOx3, forgetful at times, at bedside. Patient admitted with diagnosis of Urosepsis. Patient and patient's oriented to hospital routine, call light, toileting and safety-patient verbalized understanding. Side rails up x3, bed alarm on and room across from nursing station for safety. Call light within reach.
--- NOTE | 2021-12-25 18:27 | NUR ---
CONSULTATION PAGED/CALLED Reason for Consultation: [] urinary retention Person Who was Notified: [] FEBRUARY Consulting Physician: [] DR JOAN LIRA/ DR SHANIKA ALMANZAR ATHLETICS TEACHER Portable Canteen Operator Specialty: [] UROLOGIST Ordering Physician: [] DR DOMINGUEZ
[2021-12-25] MEDS: NACL 0.9% 1,000 ML IV SCH (18:37)
[2021-12-25] MEDS: cefTRIAXone 1 GM in D5W 50 ML IV SCH (18:37)
--- NOTE | 2021-12-25 18:37 | NUR ---
DR ALMANZAR THE PROJECT COACH FOR DR LIRA CALLED AND SAID THAT HE DOES NOT HAVE ANY PRIVILEGES AT THIS HOSP. WILL NOTIFY DR DOMINGUEZ
[2021-12-25 19:00] VITALS: BP_SYST 116
--- NOTE | 2021-12-25 19:15 | NUR ---
change of shift.pt.presents quiescent affect;calm,resting.pt.presents iv access location lt.hand iv fluids infusing.pt.presents self catheterization.catheters from home [email or web address] c/o pain,nausea.pt.capable to reposition self.general status stable. respiratory status stable@room air.call light/telephone w/in access of the pt.
--- NOTE | 2021-12-25 19:15 | NUR ---
CLOSING NOTE Pt sitting up in bed eating dinner with his , no s/s resp distress, no c/o pain or discomfort. IVPB infusing well to left hand at ordered rate with no s/s infiltration to site. Needs met, all precautions remain in place. Call light within reach. Endorsed care to night time nanny RN.
[2021-12-25 20:00] VITALS: BP_SYST 116
--- NOTE | 2021-12-25 20:00 | NUR ---
pt.assessed.v/s assessed values wnl.no c/o pain,nausea.iv access intact iv fluids infusing.i have apprised the pt.that snacks/beverages are available w/in the shift.no requests posited@this hour solely blankets;warmed provided.pt.assisted w self catheterization.pt.assisted w repositioning.call light/telephone placed w/in access of the pt. Addendum: 12/26/21 at 0218 by Reuben Coley RN urinal w/in access of the pt.
[2021-12-25] MEDS ORDERED: levETIRAcetam 500 MG TABLET PO SCH (21:00)
[2021-12-25] MEDS ORDERED: DEXAMETHASONE 1 MG TABLET (DECADRON) PO SCH (21:00)
[2021-12-25] MEDS ORDERED: FAMOTIDINE 20 MG TABLET PO SCH (21:00)
--- NOTE | 2021-12-25 21:00 | NUR ---
pt.assisted w self catheterization.no c/o pain,nausea.no requests posited@this hour.call light/telephone placed w/in access of the pt.
--- NOTE | 2021-12-25 22:00 | NUR ---
pt.assessed.no c/o pain,nausea.no requests posited@this hour.pt.assisted w self catheterization.no c/o pain,nausea.pt.capable to self.call light/telephone placed w/in access of the pt. Addendum: 12/26/21 at 0218 by Reuben Coley RN urinal w/in access of the pt.
--- NOTE | 2021-12-26 | NUR ---
pt.assessed.v/s assessed values wnl.no c/o pain,nausea.iv access intact iv fluids infusing.no requests posited@this hour. pt.capable to reposition self.call light/telephone w/in access of the pt. Addendum: 12/26/21 at 0219 by Reuben Coley RN urinal w/in access of the pt.
--- NOTE | 2021-12-26 02:00 | NUR ---
pt.assessed.pt.presents quiescent affect calm,somnolent.per flacc pain mgx pt.absent facial grimaces/body posturing. pt.capable to reposition self.urinal w/in access of the pt.call light/telephone w/in access of the pt.
[2021-12-26] MEDS: NACL 0.9% 1,000 ML IV SCH ×3 (03:45→23:45)
--- NOTE | 2021-12-26 04:00 | NUR ---
pt.assessed.pt.presents quiescent affect calm,somnolent.per flacc pain mgx pt.absent facial grimaces/body posturing. pt.capable to reposition self.urinal w/in access of the pt.call light/telephone placed w/in access of the pt.
--- NOTE | 2021-12-26 07:30 | NUR ---
Morning Rounds: Patient sitting on the bed,awake,alert and oriented x4.Iv was not connected by night nurse this time. No distress. Call light with in reach. Bed locked at lowest position. Continue to monitor.
[2021-12-26 07:42] LABS: ANION GAP 8 (5-15); CALCIUM 8.2 mg/dL (8.4-11.0); CHLORIDE 101 mmol/L (98-107); GLUCOSE 161 mg/dL (70-99); POTASSIUM 3.3 mmol/L (3.5-5.1); SODIUM SERUM 136 mmol/L (136-145); UREA NITROGEN, BLOOD 15 mg/dL (8-21)
[2021-12-26 08:00] LABS: BASOPHILS % (AUTO) 0.5 % (0.0-2.0); EOSINOPHILS % (AUTO) 0.1 % (0.0-4.0); HEMATOCRIT 38.3 % (36-54); HEMOGLOBIN 13.2 g/dL (14.0-18.0); LYMPHOCYTES # (AUTO) 1.5 K/uL (1.0-5.5); LYMPHOCYTES % (AUTO) 22.8 % (20.5-51.5); MEAN CORPUSCULAR HEMOGLOBIN 30 pg (27-31); MEAN CORPUSCULAR HGB CONC 34 % (32-36); MEAN CORPUSCULAR VOLUME 86 fL (79.0-98.0); MONOCYTES # (AUTO) 0.8 K/uL (0.0-1.0); MONOCYTES % (AUTO) 11.4 % (1.7-9.3); NEUTROPHILS # (AUTO) 4.3 K/uL (1.8-7.7); NEUTROPHILS % (AUTO) 65.2 % (40.0-70.0); PLATELET COUNT (AUTO) 166 K/uL (130-430); RED BLOOD CELL COUNT(AUTO) 4.47 MIL/uL (4.2-6.2); WHITE BLOOD COUNT (AUTO) 6.7 K/uL (4.8-10.8)
[2021-12-26 08:15] VITALS: BP_SYST 133
[2021-12-26] MEDS: FINASTERIDE 5 MG TABLET (PROSCAR) PO SCH (08:33)
[2021-12-26] MEDS: TAMSULOSIN HCL 0.4 MG CAP PO SCH (08:33)
--- NOTE | 2021-12-26 08:39 | NUR ---
MD ROUNDS: DR DOMINGUEZ SEEN PATIENT IN THE ROOM AND DISCUSSED PLAN OF CARE WITH THE PATIENT.
[2021-12-26] MEDS ORDERED: TERAZOSIN HCL 1 MG CAPSULE (HYTRIN) GT SCH (09:00)
[2021-12-26 12:55] VITALS: BP_SYST 117
[2021-12-26] MEDS: ACETAMINOPHEN 325 MG TABLET PO PRN (14:05)
--- NOTE | 2021-12-26 15:00 | NUR ---
PT : PHYSICAL THERAPIST WORKING WITH THE PATIENT IN THE ROOM.
[2021-12-26 16:52] VITALS: BP_SYST 120
[2021-12-26] MEDS: cefTRIAXone 1 GM in D5W 50 ML IV SCH (18:03)
--- NOTE | 2021-12-26 18:42 | NUR ---
Evening Rounds: Patient's bought outside food for the patient. Iv fluids running at left hand intact.Not in any distress. Call light with in reach. Bed locked at lowest position.Stable.
[2021-12-26 19:00] VITALS: BP_SYST 150
--- NOTE | 2021-12-26 19:15 | NUR ---
change of shift.pt.presents quiescent affect calm,resting.pt.presents iv access intact location lt.hand iv lock.pt.utilizing the urinal w/in access of the pt.general status stable.respiratory status stable unlabored@room air.call light/telephone w/in access of the pt.
[2021-12-26 20:00] VITALS: BP_SYST 150
--- NOTE | 2021-12-26 20:00 | NUR ---
pt.assessed.v/s assessed values wnl.no c/o pain,nausea.iv access intact.i have apprised the pt.that snacks/beverages are available w/in the shift.no requests posited@this hour.pt.utilizing the urinal w/in access of the pt.pt.capable to reposition self. call light/telephone w/in access of the pt.
--- NOTE | 2021-12-26 22:00 | NUR ---
pt.assessed.pt.had requested medication sleep.i have administered ambien.no additional requests posited@this hour. no c/o pain,nausea.urinal w/in access of the pt.pt.capable to reposition self.call light/telephone w/in access of the pt.
--- NOTE | 2021-12-27 | NUR ---
pt.assessed.v/s assessed values wnl.no c/o pain,nausea.no requests posited@this hour.pt.assisted w urinal placed w/in access of the pt.pt.capable to reposition self.call light/telephone placed w/in access of the pt.
[2021-12-27 00:41] VITALS: BP_SYST 148
--- NOTE | 2021-12-27 01:00 | NUR ---
pt.had requested medication pain.i have administered morphine:2mg ivp.to assess the efficacy of the pain medication per pain mgx protocol.pt.utilized w the urinal places w/in access of the pt.
--- NOTE | 2021-12-27 04:00 | NUR ---
pt.assessed.pt.assisted w urinal.no c/o pain,nausea.no requests posited@this hour. pt.capable to reposition self. call light/telephone placed w/in access of the pt.
--- NOTE | 2021-12-27 06:26 | NUR ---
pt.assessed.pt.presents quiescent affect.pt.ambulated to the restroom utilizing fw-walker.no c/o pain,nausea. no requests posited@this hour.pt.capable to reposition self.urinal w/in access of the pt.call light/telephone w/in access of the pt.
[2021-12-27 07:58] VITALS: BP_SYST 139
--- NOTE | 2021-12-27 08:03 | NUR ---
MORNING ROUNDS: PATIENT SITTING ON THE BED. VITAL SIGNS TAKEN,AFEBRILE. IV FLUIDS NOT CONNECTED PER PT'S REQUEST. CALL LIGHT WITH IN REACH. BED LOCKED AT LOWEST POSITION. NO ACUTE DISTRESS.
[2021-12-27] MEDS: TAMSULOSIN HCL 0.4 MG CAP PO SCH (08:28)
[2021-12-27] MEDS: FINASTERIDE 5 MG TABLET (PROSCAR) PO SCH (08:28)
[2021-12-27] MEDS: ACETAMINOPHEN 325 MG TABLET PO PRN (08:29)
[2021-12-27 09:30] LABS: BASOPHILS % (AUTO) 0.5 % (0.0-2.0); EOSINOPHILS % (AUTO) 0.7 % (0.0-4.0); HEMATOCRIT 37.9 % (36-54); LYMPHOCYTES # (AUTO) 1.2 K/uL (1.0-5.5); LYMPHOCYTES % (AUTO) 24.7 % (20.5-51.5); MEAN CORPUSCULAR HEMOGLOBIN 29 pg (27-31); MEAN CORPUSCULAR HGB CONC 34 % (32-36); MEAN CORPUSCULAR VOLUME 85 fL (79.0-98.0); MONOCYTES # (AUTO) 0.6 K/uL (0.0-1.0); MONOCYTES % (AUTO) 12.3 % (1.7-9.3); NEUTROPHILS % (AUTO) 61.8 % (40.0-70.0); PLATELET COUNT (AUTO) 180 K/uL (130-430); RED BLOOD CELL COUNT(AUTO) 4.44 MIL/uL (4.2-6.2); RED CELL DISTRIBUTION WIDTH 13.9 % (9.0-15.0); WHITE BLOOD COUNT (AUTO) 4.8 K/uL (4.8-10.8)
[2021-12-27 09:54] LABS: ANION GAP 7 (5-15); CALCIUM 8.5 mg/dL (8.4-11.0); CHLORIDE 103 mmol/L (98-107); CREATININE 1.31 mg/dL (0.55-1.30); GLUCOSE 123 mg/dL (70-99); POTASSIUM 4.1 mmol/L (3.5-5.1); SODIUM SERUM 137 mmol/L (136-145); UREA NITROGEN, BLOOD 15 mg/dL (8-21)
--- NOTE | 2021-12-27 10:06 | NUR ---
Discharge Planning: DCP faxe pt referral to [facility] [phone] DCP to follow up Addendum: 12/27/21 at 1415 by Meg Vargas DP Kayleigh [phone] accepted pt CM called patient.
[2021-12-27 10:24] VITALS: BP_SYST 133
--- NOTE | 2021-12-27 10:35 | NUR ---
D/C Patient Patient given medication reconciliation form and D/C instructions. Exit Care provided. Patient verbalized understanding. MD discussed with patient the results and treatment provided. Ambulatory with assisted to wheelchair for discharge to home. Patient in stable condition, ID band removed. IV catheter removed, intact and dressing applied, no active bleeding. Patient educated on pain management. All belongings sent with patient.
--- NOTE | 2021-12-27 10:45 | NUR ---
CM: CALLED TO SPEAK WITH FAMILY REGARDING ARRANGED HH, NO RESPONSE AT THIS TIME, WILL TRY AGAIN LATER.
[2021-12-28] MEDS ORDERED: SULF1TAB48 PO (08:18)
== END 2021-12-27 10:35 | disposition home health service (06) | DRG 73 ==
LOC: SED 18:27 → SMU 12-25 17:00 → STU 12-25 23:59
PROVIDERS: ADMIT General Practice; ATTEND General Practice
DX: G90.8 Other disorders of autonomic nervous system (principal); I62.00 Nontraumatic subdural hemorrhage, unspecified; N39.0 Urinary tract infection, site not specified; R65.10 Systemic inflammatory response syndrome (SIRS) of non-infectious origin without acute organ dysfunction; E87.6 Hypokalemia; N40.1 Benign prostatic hyperplasia with lower urinary tract symptoms; R33.9 Retention of urine, unspecified; Z20.822 Contact with and (suspected) exposure to COVID-19
CPT/HCPCS: 36415; 70450-TC; 71045; 76376; 80048; 80053; 81000; 83036; 83735; 84484; 85025; 87086; 93005; 96365; 99285; G0378; J0696; J2270; J7060

== ENCOUNTER 2022-01-25 08:37 | Outpatient (CLI) | payer OTHER, BC ==
[~2022-01-25 08:37] MED LIST changes: -AMOX-426 PO; -CEPH-548 PO; -LEVAQUIN PO; +SULF1TAB48 PO
[2022-01-25 09:16] LABS: BASOPHILS % (AUTO) 0.1 % (0.0-2.0); EOSINOPHILS # (AUTO) 0.1 K/uL (0.0-0.4); EOSINOPHILS % (AUTO) 1.3 % (0.0-4.0); HEMATOCRIT 39.1 % (36-54); HEMOGLOBIN 13.3 g/dL (14.0-18.0); LYMPHOCYTES # (AUTO) 2.2 K/uL (1.0-5.5); MEAN CORPUSCULAR HEMOGLOBIN 29 pg (27-31); MEAN CORPUSCULAR HGB CONC 34 % (32-36); MEAN CORPUSCULAR VOLUME 86 fL (79.0-98.0); MONOCYTES # (AUTO) 0.4 K/uL (0.0-1.0); MONOCYTES % (AUTO) 6.6 % (1.7-9.3); NEUTROPHILS # (AUTO) 3.2 K/uL (1.8-7.7); PLATELET COUNT (AUTO) 230 K/uL (130-430); RED BLOOD CELL COUNT(AUTO) 4.57 MIL/uL (4.2-6.2); RED CELL DISTRIBUTION WIDTH 14.4 % (9.0-15.0); WHITE BLOOD COUNT (AUTO) 5.8 K/uL (4.8-10.8)
[2022-01-25 09:23] LABS: ALANINE AMINOTRANSFERASE 21 U/L (12-78); ALBUMIN 3.3 g/dL (3.4-4.8); ANION GAP 6 (5-15); ASPARTATE AMINOTRANSFERASE 18 U/L (10-37); CALCIUM 8.9 mg/dL (8.4-11.0); CHLORIDE 103 mmol/L (98-107); CHOLESTEROL 159 mg/dL (<200); GLUCOSE 116 mg/dL (70-99); HDL CHOLESTEROL 39 mg/dL (>45); LDL CHOLESTEROL 103 mg/dL (<100); POTASSIUM 4.2 mmol/L (3.5-5.1); SODIUM SERUM 139 mmol/L (136-145); TOTAL BILIRUBIN 0.6 mg/dL (0.0-1.0); TRIGLYCERIDES 114 mg/dL (30-150); UREA NITROGEN, BLOOD 15 mg/dL (8-21)
== END 2022-01-25 18:17 | disposition home or self-care (01) ==
LOC: SLB 08:37
PROVIDERS: ATTEND Internal Medicine Cardiovascular Disease
DX: I77.819 Aortic ectasia, unspecified site (principal); I11.9 Hypertensive heart disease without heart failure; D50.8 Other iron deficiency anemias; E78.00 Pure hypercholesterolemia, unspecified
CPT/HCPCS: 36415; 80053; 80061; 85025

== ENCOUNTER 2022-12-31 11:06 | Outpatient (CLI) | payer OTHER, BC ==
[2022-12-31 11:49] LABS: BASOPHILS % (AUTO) 0.6 % (0.0-2.0); EOSINOPHILS % (AUTO) 0.5 % (0.0-4.0); HEMATOCRIT 39.3 % (36-54); HEMOGLOBIN 13.6 g/dL (14.0-18.0); LYMPHOCYTES % (AUTO) 35.9 % (20.5-51.5); MEAN CORPUSCULAR HEMOGLOBIN 30 pg (27-31); MEAN CORPUSCULAR HGB CONC 35 % (32-36); MEAN CORPUSCULAR VOLUME 88 fL (79.0-98.0); MONOCYTES # (AUTO) 0.5 K/uL (0.0-1.0); MONOCYTES % (AUTO) 8.6 % (1.7-9.3); NEUTROPHILS % (AUTO) 54.4 % (40.0-70.0); PLATELET COUNT (AUTO) 228 K/uL (130-430); RED BLOOD CELL COUNT(AUTO) 4.48 MIL/uL (4.2-6.2); WHITE BLOOD COUNT (AUTO) 5.5 K/uL (4.8-10.8)
[2022-12-31 12:19] LABS: ALANINE AMINOTRANSFERASE 17 U/L (12-78); ALBUMIN 3.5 g/dL (3.4-4.8); ANION GAP 6 (5-15); ASPARTATE AMINOTRANSFERASE 15 U/L (10-37); CALCIUM 9.3 mg/dL (8.4-11.0); CHLORIDE 104 mmol/L (98-107); CHOLESTEROL 110 mg/dL (<200); CREATININE 1.19 mg/dL (0.55-1.30); GLUCOSE 121 mg/dL (70-99); HDL CHOLESTEROL 48 mg/dL (>45); THYROID STIMULATING HORMONE 1.22 uIu/mL (0.34-4.82); TOTAL BILIRUBIN 0.8 mg/dL (0.0-1.0); TRIGLYCERIDES 128 mg/dL (30-150); UREA NITROGEN, BLOOD 18 mg/dL (8-21)
[2023-01-01 08:06] LABS: PROSTATE SPECIFIC AG 1.2 ng/mL (0.0-4.0)
== END 2022-12-31 19:13 | disposition home or self-care (01) ==
LOC: SLB 11:06
PROVIDERS: ATTEND Family Medicine
DX: Z01.818 Encounter for other preprocedural examination (principal); J98.11 Atelectasis; I10 Essential (primary) hypertension; R73.09 Other abnormal glucose; E03.9 Hypothyroidism, unspecified; E78.00 Pure hypercholesterolemia, unspecified; N40.1 Benign prostatic hyperplasia with lower urinary tract symptoms; M1A.00X0 Idiopathic chronic gout, unspecified site, without tophus (tophi)
CPT/HCPCS: 36415; 71046-TC; 80053; 80061; 83037; 83655; 84153; 84443; 84550; 85025

== ENCOUNTER 2023-12-18 10:58 | Outpatient (CLI) | payer OTHER, MEDICARE ==
[~2023-12-18 10:58] MED LIST changes: +FINA-37 PO; -FINA5TAB3 PO
== END 2023-12-18 18:35 | disposition home or self-care (01) ==
LOC: SLB 10:58
PROVIDERS: ATTEND Family Medicine
DX: M10.061 Idiopathic gout, right knee (principal); M25.561 Pain in right knee
CPT/HCPCS: 36415; 84550

== ENCOUNTER 2024-04-09 10:27 | Outpatient (CLI) | payer OTHER, MEDICARE ==
[2024-04-09 11:04] LABS: BASOPHILS % (AUTO) 0.5 % (0.0-2.0); EOSINOPHILS # (AUTO) 0.1 K/uL (0.0-0.4); EOSINOPHILS % (AUTO) 1.5 % (0.0-4.0); HEMATOCRIT 40.4 % (36-54); HEMOGLOBIN 14.5 g/dL (14.0-18.0); LYMPHOCYTES # (AUTO) 1.6 K/uL (1.0-5.5); LYMPHOCYTES % (AUTO) 31.3 % (20.5-51.5); MEAN CORPUSCULAR HEMOGLOBIN 31 pg (27-31); MEAN CORPUSCULAR HGB CONC 36 % (32-36); MEAN CORPUSCULAR VOLUME 86 fL (79.0-98.0); MONOCYTES # (AUTO) 0.6 K/uL (0.0-1.0); MONOCYTES % (AUTO) 11.5 % (1.7-9.3); NEUTROPHILS # (AUTO) 2.8 K/uL (1.8-7.7); NEUTROPHILS % (AUTO) 55.2 % (40.0-70.0); PLATELET COUNT (AUTO) 153 K/uL (130-430); RED BLOOD CELL COUNT(AUTO) 4.71 MIL/uL (4.2-6.2); RED CELL DISTRIBUTION WIDTH 14.8 % (9.0-15.0)
[2024-04-09 11:21] LABS: ALANINE AMINOTRANSFERASE 24 U/L (12-78); ALBUMIN 3.5 g/dL (3.4-4.8); ANION GAP 8 (5-15); ASPARTATE AMINOTRANSFERASE 21 U/L (10-37); CALCIUM 8.8 mg/dL (8.4-11.0); CARBON DIOXIDE 28 mmol/L (23-29); CHLORIDE 105 mmol/L (98-107); CHOLESTEROL 92 mg/dL (<200); CREATININE 1.24 mg/dL (0.55-1.30); GLUCOSE 120 mg/dL (74-106); HDL CHOLESTEROL 37 mg/dL (>45); POTASSIUM 4.1 mmol/L (3.5-5.1); SODIUM SERUM 141 mmol/L (136-145); THYROID STIMULATING HORMONE 1.59 uIu/mL (0.34-4.82); TOTAL BILIRUBIN 1.1 mg/dL (0.0-1.0); TOTAL PROTEIN, SERUM 6.9 g/dL (6.4-8.3); TRIGLYCERIDES 113 mg/dL (30-150); UREA NITROGEN, BLOOD 13 mg/dL (8-21)
== END 2024-04-09 18:00 | disposition home or self-care (01) ==
LOC: SLB 10:27
PROVIDERS: ATTEND Family Medicine
DX: E03.9 Hypothyroidism, unspecified (principal); R19.5 Other fecal abnormalities; N40.1 Benign prostatic hyperplasia with lower urinary tract symptoms
CPT/HCPCS: 36415; 80053; 80061; 82272; 83037; 84153; 84443; 85025

== ENCOUNTER 2024-08-04 09:09 | Outpatient (CLI) | payer OTHER, MEDICARE | END 2024-08-04 18:16 | disposition home or self-care (01) | LOC: SCT 09:09 | PROVIDERS: ATTEND Otolaryngology | DX: J34.1 Cyst and mucocele of nose and nasal sinus (principal); R51.9 Headache, unspecified; D14.0 Benign neoplasm of middle ear, nasal cavity and accessory sinuses | CPT/HCPCS: 70486-TC ==